=== PATIENT | male | born 1960 | race Caucasian/White ===

== ENCOUNTER 2016-08-21 10:31 | Emergency (ER) | payer OTHER ==
--- NOTE | 2016-08-21 11:32 | ED ---
Complex/Multi-Sys Presentation - HPI Summary HPI Summary: Recovering heroine addict here w/ blood in urine this morning. Denies frequency , dysuria, flank pain. Took a clonazepam last night as he couldn't sleep. Has taken this in the past w/o difficulty. When asked if he has nightsweats, he states " I don't sleep". Last used heroine 1 month ago. Denies withdrawal symptoms today. When asked if he's taking anything for cravings, he reports Chest sx x > 1 month - "doesn't feel right, can't breath well, discomfort" - can 't describe beyond this. Associated sx of chills - denies fever, vomiting, diarrhea. States he reported his chest sx to medical staff while he was in rehab for heroine - had XR's taken at [facility] [place] in [facility]. When asked about what he was supposed to do for f/u, he says nothing. Denies ECG. Unintentional weight loss of 68lbs over past 3-4 months Decreased appetite and nausea - no vomiting, no ab swelling Blood from anus the other day - lasted about 1 hour - none since - thinks it was his hemorrhoids as he's had this in the past. Non-painful. Also reports easy bruising on Rt arm. Labs done a few weeks ago and was told he has "liver issues" - no follow-up per pt - History Of Current Complaint Hx Obtained From: Patient <BrannonHortencia - Last Filed: 08/21/16 16:55> <Austin Talavera - Last Filed: 08/23/16 22:10> - History Of Current Complaint Chief Complaint: EDUrogenitalProblems Time Seen by Provider: 08/21/16 10:47 - Allergies/Home Medications Allergies/Adverse Reactions: Allergies Allergy/AdvReac Type Severity Reaction Status Date / Time Ibuprofen Allergy Intermediate Rash Verified 08/21/16 10:35 Tramadol Allergy Intermediate Rash Verified 08/21/16 10:35 Iodinated Diagnostic Agents AdvReac Vomiting Verified 08/23/16 15:47 CT Contrast AdvReac Intermediate Vomiting Uncoded 08/23/16 15:47 PMH/Surg Hx/FS Hx/Imm Hx Previously Healthy: Yes Endocrine/Hematology History: Reports: Hx Unexplained Bleeding - rectally Denies: Hx Anticoagulant Therapy, Hx Diabetes, Hx Thyroid Disease Cardiovascular History: Reports: Hx Hypertension - NO MEDS, Other Cardiovascular Problems/Disorders - HYPERTENSION Denies: Hx Congestive Heart Failure, Hx Pacemaker/ICD Respiratory History: Reports: Hx Asthma, Other Respiratory Problems/Disorders - R PNEUMONTHORAX PER PT Comment Only: Hx Chronic Obstructive Pulmonary Disease (COPD) - ? COPD GI History: Reports: Hx Hiatal Hernia - HX OF- HAD SURGERY, Other GI Disorders - right pneumothorax 2011 Denies: Hx Ulcer History: Denies: Hx Dialysis, Hx Renal Disease Musculoskeletal History: Reports: Other Musculoskeletal History - multiple rib fx from tombstone falling on pt Sensory History: Denies: Hx Contacts or Glasses, Hx Hearing Aid Opthamlomology History: Denies: Hx Contacts or Glasses Neurological History: Reports: Other Neuro Impairments/Disorders - depression Denies: Hx Dementia, Hx Seizures Psychiatric History: Reports: Hx Depression Denies: Hx Panic Disorder, Hx Substance Abuse - Surgical History Surgery Procedure, Year, and Place: hiatal hernia repair 2007, [facility], Hx Anesthesia Reactions: No - Immunization History Date of Tetanus Vaccine: unknown Infectious Disease History: No Infectious Disease History: Denies: Hx Hepatitis, Hx Human Immunodeficiency Virus (HIV), 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, Traveled Outside the [place] in Last 30 Days - Family History Known Family History: Positive: Unknown - Social History Alcohol Use: None Hx Substance Use: No Substance Use Type: Reports: Other Substance Use Comment - Amount & Last Used: Crack Hx Tobacco Use: No Smoking Status (MU): Never Smoked Tobacco <Hortencia South - Last Filed: 08/21/16 16:55> Review of Systems All Other Systems Reviewed And Are Negative: Yes <Hortencia South - Last Filed: 08/21/16 16:55> Physical Exam Vital Signs On Initial Exam: Initial Vitals Temp Pulse Resp BP Pulse Ox 97.7 F 85 16 121/82 100 08/21/16 10:35 08/21/16 10:35 08/21/16 10:35 08/21/16 10:35 08/21/16 10:35 <Hortencia South - Last Filed: 08/21/16 16:55> Vital Signs On Initial Exam: Initial Vitals Temp Pulse Resp BP Pulse Ox 36.5 C 85 16 121/82 100 08/21/16 10:35 08/21/16 10:35 08/21/16 10:35 08/21/16 10:35 08/21/16 10:35 <Austin Talavera - Last Filed: 08/23/16 22:10> Diagnostics - Vital Signs Vital Signs Temp Pulse Resp BP Pulse Ox 08/21/16 10:35 97.7 F 85 16 121/82 100 - Laboratory Result Diagrams: 08/21/16 12:35 08/21/16 12:35 Lab Statement: Any lab studies that have been ordered have been reviewed, and results considered in the medical decision making process. <Hortencia South - Last Filed: 08/21/16 16:55> - Vital Signs Vital Signs Temp Pulse Resp BP Pulse Ox 08/21/16 15:38 37.6 C 68 18 145/90 08/21/16 10:35 36.5 C 85 16 121/82 100 - Laboratory Lab Results: Lab Results 08/21/16 08/21/16 08/21/16 Range/Units 11:20 12:35 12:35 WBC (3.5-10.8) 10^3/ul RBC (4.0-5.4) 10^6/ul Hgb (14.0-18.0) g/dl Hct (42-52) % MCV (80-94) fL MCH (27-31) pg MCHC (31-36) g/dl RDW (10.5-15) % Plt Count (150-450) 10^3/ul MPV (7.4-10.4) um3 Neut % (Auto) (38-83) % Lymph % (Auto) (25-47) % [place] % (Auto) (1-9) % Eos % (Auto) (0-6) % Baso % (Auto) (0-2) % Absolute Neuts (auto) (1.5-7.7) 10^3/ul Absolute Lymphs (auto) (1.0-4.8) 10^3/ul Absolute Monos (auto) (0-0.8) 10^3/ul Absolute Eos (auto) (0-0.6) 10^3/ul Absolute Basos (auto) (0-0.2) 10^3/ul Absolute Nucleated RBC 10^3/ul Nucleated RBC % INR (Anticoag Therapy) (0.89-1.11) APTT (26.0-36.3) seconds Sodium (133-145) mmol/L Potassium (3.5-5.0) mmol/L Chloride (101-111) mmol/L Carbon Dioxide (22-32) mmol/L Anion Gap (2-11) mmol/L BUN (6-24) mg/dL Creatinine (0.67-1.17) mg/dL Est GFR ( Amer) (>60) Est GFR (Non-Af Amer) (>60) BUN/Creatinine Ratio (8-20) Glucose (70-100) mg/dL Lactic Acid (0.5-2.0) mmol/L Calcium (8.6-10.3) mg/dL Total Bilirubin (0.2-1.0) mg/dL AST (13-39) U/L ALT (7-52) U/L Alkaline Phosphatase (34-104) U/L Ammonia 42 (16-53) mol/L C-Reactive Protein (< 5.00) mg/L Total Protein (6.4-8.9) g/dL Albumin (3.2-5.2) g/dL Globulin (2-4) g/dL Albumin/Globulin Ratio (1-3) Urine Color Red A Urine Appearance Cloudy Urine pH 5.0 (5-9) Ur Specific [place] 1.025 (1.010-1.030) Urine Protein 2+(100 mg/dl) H (Negative) Urine Ketones Negative (Negative) Urine Blood 3 (Negative) Urine Nitrate Negative (Negative) Urine Bilirubin Negative (Negative) Urine Urobilinogen Negative (Negative) Ur Leukocyte Esterase Negative (Negative) Urine RBC (Auto) 3+(>10/hpf) H (Absent) Urine Glucose Negative (Negative) Urine Ascorbic Acid * H (Negative) Hepatitis A IgM Ab Nonreactive (Nonreactive) Hep Bs Antigen Nonreactive (Nonreactive) Hep B Core IgM Ab Nonreactive (Nonreactive) Hepatitis C Antibody High reactive H (Nonreactive) HIV 1&2 Antibody Nonreactive (Nonreactive) Blood Type Antibody Screen 08/21/16 08/21/16 08/21/16 Range/Units 12:35 12:35 12:35 WBC (3.5-10.8) 10^3/ul RBC (4.0-5.4) 10^6/ul Hgb (14.0-18.0) g/dl Hct (42-52) % MCV (80-94) fL MCH (27-31) pg MCHC (31-36) g/dl RDW (10.5-15) % Plt Count (150-450) 10^3/ul MPV (7.4-10.4) um3 Neut % (Auto) (38-83) % Lymph % (Auto) (25-47) % [place] % (Auto) (1-9) % Eos % (Auto) (0-6) % Baso % (Auto) (0-2) % Absolute Neuts (auto) (1.5-7.7) 10^3/ul Absolute Lymphs (auto) (1.0-4.8) 10^3/ul Absolute Monos (auto) (0-0.8) 10^3/ul Absolute Eos (auto) (0-0.6) 10^3/ul Absolute Basos (auto) (0-0.2) 10^3/ul Absolute Nucleated RBC 10^3/ul Nucleated RBC % INR (Anticoag Therapy) 1.05 (0.89-1.11) APTT 30.5 (26.0-36.3) seconds Sodium 141 (133-145) mmol/L Potassium 3.5 (3.5-5.0) mmol/L Chloride 107 (101-111) mmol/L Carbon Dioxide 29 (22-32) mmol/L Anion Gap 5 (2-11) mmol/L BUN 15 (6-24) mg/dL Creatinine 0.94 (0.67-1.17) mg/dL Est GFR ( Amer) 107.6 (>60) Est GFR (Non-Af Amer) 83.6 (>60) BUN/Creatinine Ratio 16.0 (8-20) Glucose 94 (70-100) mg/dL Lactic Acid 0.8 (0.5-2.0) mmol/L Calcium 9.0 (8.6-10.3) mg/dL Total Bilirubin 0.60 (0.2-1.0) mg/dL AST 44 H (13-39) U/L ALT 73 H (7-52) U/L Alkaline Phosphatase 64 (34-104) U/L Ammonia (16-53) mol/L C-Reactive Protein 3.09 (< 5.00) mg/L Total Protein 6.8 (6.4-8.9) g/dL Albumin 3.6 (3.2-5.2) g/dL Globulin 3.2 (2-4) g/dL Albumin/Globulin Ratio 1.1 (1-3) Urine Color Urine Appearance Urine pH (5-9) Ur Specific [place] (1.010-1.030) Urine Protein (Negative) Urine Ketones (Negative) Urine Blood (Negative) Urine Nitrate (Negative) Urine Bilirubin (Negative) Urine Urobilinogen (Negative) Ur Leukocyte Esterase (Negative) Urine RBC (Auto) (Absent) Urine Glucose (Negative) Urine Ascorbic Acid (Negative) Hepatitis A IgM Ab (Nonreactive) Hep Bs Antigen (Nonreactive) Hep B Core IgM Ab (Nonreactive) Hepatitis C Antibody (Nonreactive) HIV 1&2 Antibody (Nonreactive) Blood Type Antibody Screen 08/21/16 08/21/16 Range/Units 12:35 12:35 WBC 6.1 (3.5-10.8) 10^3/ul RBC 5.07 (4.0-5.4) 10^6/ul Hgb 14.7 (14.0-18.0) g/dl Hct 45 (42-52) % MCV 88 (80-94) fL MCH 29 (27-31) pg MCHC 33 (31-36) g/dl RDW 14 (10.5-15) % Plt Count 173 (150-450) 10^3/ul MPV 8 (7.4-10.4) um3 Neut % (Auto) 75.0 (38-83) % Lymph % (Auto) 16.4 L (25-47) % [place] % (Auto) 6.5 (1-9) % Eos % (Auto) 1.3 (0-6) % Baso % (Auto) 0.8 (0-2) % Absolute Neuts (auto) 4.6 (1.5-7.7) 10^3/ul Absolute Lymphs (auto) 1.0 (1.0-4.8) 10^3/ul Absolute Monos (auto) 0.4 (0-0.8) 10^3/ul Absolute Eos (auto) 0.1 (0-0.6) 10^3/ul Absolute Basos (auto) 0 (0-0.2) 10^3/ul Absolute Nucleated RBC 0.01 10^3/ul Nucleated RBC % 0.1 INR (Anticoag Therapy) (0.89-1.11) APTT (26.0-36.3) seconds Sodium (133-145) mmol/L Potassium (3.5-5.0) mmol/L Chloride (101-111) mmol/L Carbon Dioxide (22-32) mmol/L Anion Gap (2-11) mmol/L BUN (6-24) mg/dL Creatinine (0.67-1.17) mg/dL Est GFR ( Amer) (>60) Est GFR (Non-Af Amer) (>60) BUN/Creatinine Ratio (8-20) Glucose (70-100) mg/dL Lactic Acid (0.5-2.0) mmol/L Calcium (8.6-10.3) mg/dL Total Bilirubin (0.2-1.0) mg/dL AST (13-39) U/L ALT (7-52) U/L Alkaline Phosphatase (34-104) U/L Ammonia (16-53) mol/L C-Reactive Protein (< 5.00) mg/L Total Protein (6.4-8.9) g/dL Albumin (3.2-5.2) g/dL Globulin (2-4) g/dL Albumin/Globulin Ratio (1-3) Urine Color Urine Appearance Urine pH (5-9) Ur Specific [place] (1.010-1.030) Urine Protein (Negative) Urine Ketones (Negative) Urine Blood (Negative) Urine Nitrate (Negative) Urine Bilirubin (Negative) Urine Urobilinogen (Negative) Ur Leukocyte Esterase (Negative) Urine RBC (Auto) (Absent) Urine Glucose (Negative) Urine Ascorbic Acid (Negative) Hepatitis A IgM Ab (Nonreactive) Hep Bs Antigen (Nonreactive) Hep B Core IgM Ab (Nonreactive) Hepatitis C Antibody (Nonreactive) HIV 1&2 Antibody (Nonreactive) Blood Type O Positive Antibody Screen Negative Result Diagrams: 08/21/16 12:35 08/21/16 12:35 Lab Statement: Any lab studies that have been ordered have been reviewed, and results considered in the medical decision making process. <Austin Talavera - Last Filed: 08/23/16 22:10> Complex Multi-Symp Course/Dx <Hortencia South - Last Filed: 08/21/16 16:55> <Austin Talavera - Last Filed: 08/23/16 22:10> - Diagnoses Provider Diagnoses: Hematuria Discharge <Hortencia South - Last Filed: 08/21/16 16:55> <Austin Talavera - Last Filed: 08/23/16 22:10> - Discharge Plan Condition: Stable Disposition: HOME Patient Education Materials: Hepatitis C (ED), Hematuria (ED) Referrals: Lissette RIVERS,Tyson Garza [Medical Doctor] - Yony Barry NP [Nurse Practitioner] - Tl Ziegler MD [Medical Doctor] - Additional Instructions: Your urine is positive for blood. This needs to have further assessment with a urologist (Dr. Ziegler). Please call his office today to schedule an appointment for early next week. Contact information provided below. This may indicate a more serious condition and assessment should not be delayed. Please also follow-up with your PCP next week. You have some lab tests that will be ready in a few days and can be reviewed with your PCP. It is important that you review results, especially with your history of unintentional dramatic weight loss. Call today to schedule an appointment. Contact information included below. You were also found to have Hepatitis C. This needs to be addressed with an infectious disease doctor. *If you feel worse prior to these follow up, return to ED
[2016-08-21 12:03] LABS: Urine Bilirubin Negative (Negative); Urine Glucose Negative (Negative); Urine Nitrite Negative (Negative)
--- NOTE | 2016-08-21 12:15 | RAD ---
INDICATION: Shortness of breath. COMPARISON: Comparison is made with a prior study from October 31, 2015. TECHNIQUE: Dual-energy PA and lateral views of the chest were obtained. FINDINGS: The heart is within normal limits in size. Mediastinal and hilar contours appear within normal limits. The lungs are slightly hyperinflated and clear. No pleural effusion is seen. IMPRESSION: NO EVIDENCE FOR ACTIVE CARDIOPULMONARY DISEASE.
[2016-08-21 12:49] LABS: Hematocrit 45 % (42-52); Hemoglobin 14.7 g/dl (14.0-18.0); Mean Corpuscular HGB Conc 33 g/dl (31-36); Mean Corpuscular Hemoglobin 29 pg (27-31); Mean Corpuscular Volume 88 fL (80-94); Mean Platelet Volume 8 um3 (7.4-10.4); Red Blood Count 5.07 10^6/ul (4.0-5.4); Red Cell Distribution Width 14 % (10.5-15); White Blood Count 6.1 10^3/ul (3.5-10.8)
[2016-08-21 13:15] LABS: Albumin 3.6 g/dL (3.2-5.2); C Reactive Protein 3.09 mg/L (< 5.00); EGFR African American 107.6 (>60); EGFR Non-African American 83.6 (>60); Globulin 3.2 g/dL (2-4); Potassium 3.5 mmol/L (3.5-5.0); Total Bilirubin 0.6 mg/dL (0.2-1.0); Total Protein 6.8 g/dL (6.4-8.9)
[2016-08-21 15:06] LABS: Call Hep C TO BE CALLED
[2016-08-21 15:40] VITALS: BP 145/90
== END 2016-08-21 15:38 | disposition home or self-care (01) ==
LOC: ED 10:31
DX: R31.9 Hematuria, unspecified (principal); R06.02 Shortness of breath
CPT/HCPCS: 36415; 71020; 80053; 80074; 81003; 81015; 82140; 83605; 85025; 85610; 85730; 86140; 86703; 86850; 86900; 86901; 93005; 99282

== ENCOUNTER 2016-08-23 07:50 | Inpatient (IN) | payer OTHER ==
[2016-08-23] MEDS ORDERED: Ondansetron INJ* 2 MG/ML VIAL IV ONE ×2 (08:28→13:31)
[2016-08-23] MEDS ORDERED: Ondansetron INJ* 2 MG/ML VIAL ONE (08:29)
[2016-08-23] MEDS ORDERED: HYDROmorphone INJ* 1 MG/ML CARPUJECT SYRINGE IV ONE ×3 (08:33→15:36)
[2016-08-23] MEDS ORDERED: Ketorolac INJ* 30 MG/ML 1 ML VIAL IV ONE (08:33)
[2016-08-23] MEDS: NS 0.9% 1000 ML* 2,000 ML IV ONE ×2 (08:43→09:17)
--- NOTE | 2016-08-23 09:06 | RAD ---
INDICATION: Abdominal pain COMPARISON: Most recent comparison chest x-rays dated August 21, 2016 TECHNIQUE: Single AP portable view of the chest was obtained. FINDINGS: Image quality is compromised due to the relative inferiority of a portable chest x-ray. The heart and mediastinum exhibit normal size and contour. The lungs are grossly clear. There is no evidence of a large pleural effusion. Visualized bones are normal for the patient's age. IMPRESSION: No radiographic evidence for acute cardiopulmonary abnormality on this portable chest x-ray.
[2016-08-23 10:42] LABS: Hematocrit 42 % (42-52); Hemoglobin 13.7 g/dl (14.0-18.0); Mean Corpuscular HGB Conc 33 g/dl (31-36); Mean Corpuscular Hemoglobin 29 pg (27-31); Mean Corpuscular Volume 89 fL (80-94); Mean Platelet Volume 8 um3 (7.4-10.4); Red Blood Count 4.68 10^6/ul (4.0-5.4); Red Cell Distribution Width 14 % (10.5-15)
[2016-08-23 10:57] LABS: BUN/Creatinine Ratio 16.3 (8-20); C Reactive Protein 27.18 mg/L (< 5.00); EGFR African American 110.3 (>60); EGFR Non-African American 85.7 (>60); Globulin 2.7 g/dL (2-4); Potassium 3.2 mmol/L (3.5-5.0); Total Bilirubin 0.5 mg/dL (0.2-1.0); Total Protein 5.7 g/dL (6.4-8.9)
--- NOTE | 2016-08-23 10:58 | RAD ---
CLINICAL HISTORY: Left flank pain COMPARISON: Most recent comparison CT is dated September 02, 2015 TECHNIQUE: Noncontrast CT examination of the abdomen and pelvis from the lung bases through the initial tuberosities. FINDINGS: VISUALIZED LUNG BASES: The visualized lung bases are grossly clear. There is no pleural effusion. ABDOMEN AND PELVIS: Evaluation of the solid organs and vasculature is limited without intravenous contrast. The liver, spleen, pancreas and adrenal glands are grossly normal in appearance. The gallbladder is normal. The right kidney is normal in appearance without focal mass, calcification or signs of hydronephrosis. At the proximal left ureter there is a 6 mm calcification with ipsilateral moderate hydronephrosis and a mild degree of perinephric stranding. No definite calcifications are seen more distally or in the lumen of the urinary bladder. The small and large bowel are not distended.The patient's normal appendix is identified in the right lower quadrant with air in the lumen (axial image 99). There is no gross retroperitoneal or mesenteric lymphadenopathy. The pelvic viscera is normal in appearance. The mildly calcified abdominal aorta and iliac arteries are normal in course and diameter. Degenerative changes include multilevel loss of intervertebral disc height involving the lower thoracic and lumbar spine.There are no sinister bone lesions. IMPRESSION: 1. In the proximal left ureter there is a 6 mm calcification with ipsilateral hydronephrosis and mild perinephric stranding. 2. There are additional chronic and degenerative findings described in the body the report unlikely to be directly related to the patient's current presentation.
[2016-08-23] MEDS ORDERED: NS 0.9% 1000 ML* 1,000 ML IV ONE ×2 (11:29→14:52)
[2016-08-23 13:08] LABS: Urine Bacteria Absent (Absent); Urine Bilirubin Negative (Negative); Urine Glucose Negative (Negative); Urine Nitrite Negative (Negative)
--- NOTE | 2016-08-23 15:46 | ED ---
gabo Lilly Timothy, scribed for Eb Centeno MD on 08/23/16 at 0814 . Abdominal Pain/Male - HPI Summary HPI Summary: Sher Centeno is a 56 yo male presenting to [facility] with 10/10 constant LLQ abd pain beginning 0500 today, waking him up. He has vomited twice, and denies diarrhea. He denies any Hx of similar Sx. He denies any pain in his back. He states there are no aggravating or alleviating factors. His Hx includes obesity, collapsed lung 2013, polyp removal, asthma. - History of Current Complaint Chief Complaint: ED Stated Complaint: ABD PAIN Time Seen by Provider: 08/23/16 08:01 Hx Obtained From: Patient Onset/Duration: Sudden Onset, Lasting Hours, Still Present, Worse Since - now Timing: Constant, Lasting Hours Severity Initially: Moderate Severity Currently: Moderate Pain Intensity: 10 Pain Scale Used: 0-10 Numeric Location: Discrete At: LLQ Alleviating Factor(s): Nothing Associated Signs And Symptoms: Positive: Nausea, Vomiting - Allergies/Home Medications Allergies/Adverse Reactions: Allergies Allergy/AdvReac Type Severity Reaction Status Date / Time Ibuprofen Allergy Intermediate Rash Verified 08/21/16 10:35 Tramadol Allergy Intermediate Rash Verified 08/21/16 10:35 CT Contrast Allergy Intermediate Vomiting Uncoded 08/21/16 10:35 PMH/Surg Hx/FS Hx/Imm Hx Endocrine/Hematology History: Reports: Hx Unexplained Bleeding - rectally Denies: Hx Anticoagulant Therapy, Hx Diabetes, Hx Thyroid Disease Cardiovascular History: Reports: Hx Hypertension - NO MEDS, Other Cardiovascular Problems/Disorders - HYPERTENSION Denies: Hx Congestive Heart Failure, Hx Pacemaker/ICD Respiratory History: Reports: Hx Asthma, Other Respiratory Problems/Disorders - R PNEUMONTHORAX PER PT Comment Only: Hx Chronic Obstructive Pulmonary Disease (COPD) - ? COPD GI History: Reports: Hx Hiatal Hernia - HX OF- HAD SURGERY, Other GI Disorders - right pneumothorax 2011 Denies: Hx Ulcer History: Denies: Hx Dialysis, Hx Renal Disease Musculoskeletal History: Reports: Other Musculoskeletal History - multiple rib fx from tombstone falling on pt Sensory History: Denies: Hx Contacts or Glasses, Hx Hearing Aid Opthamlomology History: Denies: Hx Contacts or Glasses Neurological History: Reports: Other Neuro Impairments/Disorders - depression Denies: Hx Dementia, Hx Seizures Psychiatric History: Reports: Hx Depression Denies: Hx Panic Disorder, Hx Substance Abuse - Surgical History Surgery Procedure, Year, and Place: hiatal hernia repair 2007, [facility], Hx Anesthesia Reactions: No - Immunization History Date of Tetanus Vaccine: unknown Infectious Disease History: Denies: Hx Hepatitis, Hx Human Immunodeficiency Virus (HIV), 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 Negative: Diarrhea Genitourinary: Negative Musculoskeletal: Negative Skin: Negative Neurological: Negative Psychological: Normal All Other Systems Reviewed And Are Negative: Yes Physical Exam Triage Information Reviewed: Yes Vital Signs On Initial Exam: Initial Vitals Temp Pulse Resp BP Pulse Ox 98.5 F 58 18 180/150 98 08/23/16 07:58 08/23/16 07:58 08/23/16 07:58 08/23/16 07:58 08/23/16 07:58 Vital Signs Reviewed: Yes Appearance: Positive: Well-Appearing, Well-Nourished, Pain Distress - moderate Skin: Positive: Warm, Skin Color Reflects Adequate Perfusion, Dry Head/Face: Positive: Normal Head/Face Inspection Eyes: Positive: Normal ENT: Positive: Normal ENT inspection Neck: Positive: Supple, Nontender Respiratory/Lung Sounds: Positive: Clear to Auscultation, Breath Sounds Present Cardiovascular: Positive: RRR Abdomen Description: Positive: Soft. Negative: Nontender - mildl tender to left periumbilical region Bowel Sounds: Positive: Present Musculoskeletal: Positive: Normal Neurological: Positive: Normal Psychiatric: Positive: Normal Diagnostics - Vital Signs Vital Signs Temp Pulse Resp BP Pulse Ox 08/23/16 07:58 98.5 F 58 18 180/150 98 - Laboratory Lab Results: Lab Results 08/23/16 08/23/16 08/23/16 Range/Units 10:30 10:30 10:30 WBC 9.0 (3.5-10.8) 10^3/ul RBC 4.68 (4.0-5.4) 10^6/ul Hgb 13.7 L (14.0-18.0) g/dl Hct 42 (42-52) % MCV 89 (80-94) fL MCH 29 (27-31) pg MCHC 33 (31-36) g/dl RDW 14 (10.5-15) % Plt Count 130 L (150-450) 10^3/ul MPV 8 (7.4-10.4) um3 Neut % (Auto) 86.3 H (38-83) % Lymph % (Auto) 8.2 L (25-47) % [place] % (Auto) 4.3 (1-9) % Eos % (Auto) 0.8 (0-6) % Baso % (Auto) 0.4 (0-2) % Absolute Neuts (auto) 7.7 (1.5-7.7) 10^3/ul Absolute Lymphs (auto) 0.7 L (1.0-4.8) 10^3/ul Absolute Monos (auto) 0.4 (0-0.8) 10^3/ul Absolute Eos (auto) 0.1 (0-0.6) 10^3/ul Absolute Basos (auto) 0 (0-0.2) 10^3/ul Absolute Nucleated RBC 0 10^3/ul Nucleated RBC % 0 Sodium 139 (133-145) mmol/L Potassium 3.2 L (3.5-5.0) mmol/L Chloride 109 (101-111) mmol/L Carbon Dioxide 27 (22-32) mmol/L Anion Gap 3 (2-11) mmol/L BUN 15 (6-24) mg/dL Creatinine 0.92 (0.67-1.17) mg/dL Est GFR ( Amer) 110.3 (>60) Est GFR (Non-Af Amer) 85.7 (>60) BUN/Creatinine Ratio 16.3 (8-20) Glucose 114 H (70-100) mg/dL Lactic Acid 0.9 (0.5-2.0) mmol/L Calcium 8.0 L (8.6-10.3) mg/dL Total Bilirubin 0.50 (0.2-1.0) mg/dL AST 31 (13-39) U/L ALT 58 H (7-52) U/L Alkaline Phosphatase 54 (34-104) U/L C-Reactive Protein 27.18 H (< 5.00) mg/L Total Protein 5.7 L (6.4-8.9) g/dL Albumin 3.0 L (3.2-5.2) g/dL Globulin 2.7 (2-4) g/dL Albumin/Globulin Ratio 1.1 (1-3) Lipase 34 (11.0-82.0) U/L Urine Color Urine Appearance Urine pH (5-9) Ur Specific [place] (1.010-1.030) Urine Protein (Negative) Urine Ketones (Negative) Urine Blood (Negative) Urine Nitrate (Negative) Urine Bilirubin (Negative) Urine Urobilinogen (Negative) Ur Leukocyte Esterase (Negative) Urine WBC (Auto) (Absent) Urine RBC (Auto) (Absent) Ur Squamous Epith Cells (Absent) Urine Bacteria (Absent) Urine Glucose (Negative) 08/23/16 Range/Units 12:50 WBC (3.5-10.8) 10^3/ul RBC (4.0-5.4) 10^6/ul Hgb (14.0-18.0) g/dl Hct (42-52) % MCV (80-94) fL MCH (27-31) pg MCHC (31-36) g/dl RDW (10.5-15) % Plt Count (150-450) 10^3/ul MPV (7.4-10.4) um3 Neut % (Auto) (38-83) % Lymph % (Auto) (25-47) % [place] % (Auto) (1-9) % Eos % (Auto) (0-6) % Baso % (Auto) (0-2) % Absolute Neuts (auto) (1.5-7.7) 10^3/ul Absolute Lymphs (auto) (1.0-4.8) 10^3/ul Absolute Monos (auto) (0-0.8) 10^3/ul Absolute Eos (auto) (0-0.6) 10^3/ul Absolute Basos (auto) (0-0.2) 10^3/ul Absolute Nucleated RBC 10^3/ul Nucleated RBC % Sodium (133-145) mmol/L Potassium (3.5-5.0) mmol/L Chloride (101-111) mmol/L Carbon Dioxide (22-32) mmol/L Anion Gap (2-11) mmol/L BUN (6-24) mg/dL Creatinine (0.67-1.17) mg/dL Est GFR ( Amer) (>60) Est GFR (Non-Af Amer) (>60) BUN/Creatinine Ratio (8-20) Glucose (70-100) mg/dL Lactic Acid (0.5-2.0) mmol/L Calcium (8.6-10.3) mg/dL Total Bilirubin (0.2-1.0) mg/dL AST (13-39) U/L ALT (7-52) U/L Alkaline Phosphatase (34-104) U/L C-Reactive Protein (< 5.00) mg/L Total Protein (6.4-8.9) g/dL Albumin (3.2-5.2) g/dL Globulin (2-4) g/dL Albumin/Globulin Ratio (1-3) Lipase (11.0-82.0) U/L Urine Color [place]ina Urine Appearance Cloudy Urine pH 5.0 (5-9) Ur Specific [place] 1.021 (1.010-1.030) Urine Protein 1+(30 mg/dl) H (Negative) Urine Ketones Trace H (Negative) Urine Blood 3+ H (Negative) Urine Nitrate Negative (Negative) Urine Bilirubin Negative (Negative) Urine Urobilinogen Negative (Negative) Ur Leukocyte Esterase Negative (Negative) Urine WBC (Auto) 1+(6-10/hpf) H (Absent) Urine RBC (Auto) 3+(>10/hpf) H (Absent) Ur Squamous Epith Cells Present H (Absent) Urine Bacteria Absent (Absent) Urine Glucose Negative (Negative) Result Diagrams: 08/23/16 10:30 08/23/16 10:30 Lab Statement: Any lab studies that have been ordered have been reviewed, and results considered in the medical decision making process. - Radiology CXR Xray Interpretation: No Acute Changes - IMPRESSION: No radiographic evidence for acute cardiopulmonary abnormality on this portable chest x-ray. Radiology Interpretation Completed By: Radiologist - CT A/P CT Interpretation: Positive (See Comments) - IMPRESSION: 1. In the proximal left ureter there is a 6 mm calcification with ipsilateral hydronephrosis and mild perinephric stranding. 2. There are additional chronic and degenerative findings described in the body the report unlikely to be directly related to the patient's current presentation. CT Interpretation Completed By: Radiologist Re-Evaluation - Re-Evaluation First Eval Re-Evaluation Time: 12:04 Change: Unchanged Comment: Pt is having trouble providing a urine sample Second Eval Re-Evaluation Time: 15:26 Change: Worse Comment: Pain has increased. Abdominal Pain Fem Course/Dx - Course Assessment/Plan: Ruth Centeno is a 56 yo male presenting to [facility] with LLQ abdominal pain. He was in a lot of distress and was treated with medications and fluids. His ST showed a large proximal stone with hydronephrosis. We attempted to handle his pain here in the ED but it proved refractory. After review of his labwork and imaging studies, and consult with Dr. Acosta and Dr. Durán he will be admitted to [facility] [place] - Diagnoses Provider Diagnoses: Kidney stone on left side - Provider Notifications Discussed Care Of Patient With: 1451 - Dr. Pena (GI) - Discussed Pt condition, recommended pain control, and if it is uncontrollable, he ill need to be admitted. 1534 - Dr. Durán (hospitalist) - Discussed Pt condition and issues controlling his pain. Agrees to admit Pt. Discharge - Discharge Plan Condition: Stable Disposition: ADMITTED TO [facility] Referrals: Shelia Taylor MD [Primary Care Provider] - The documentation as recorded by the gabo angelo Timothy accurately reflects the service I personally performed and the decisions made by me, Eb Centeno MD.
[2016-08-23] MEDS ORDERED: NS 0.9% w/ 40 Meq KCL 1000 ML* 1,000 ML IV SCH (16:00)
[2016-08-23] MEDS ORDERED: Ondansetron INJ* 2 MG/ML VIAL IV PRN (16:12)
[2016-08-23] MEDS ORDERED: Acetaminophen TAB* 325 MG PO PRN (16:12)
[2016-08-23] MEDS ORDERED: Tamsulosin CAP* 0.4 MG PO ONE (16:16)
[2016-08-23] MEDS ORDERED: Morphine INJ* 4 MG/ML 1 ML CARPUJECT IV ONE (16:20)
--- NOTE | 2016-08-23 17:16 | PN ---
Hospitalist Progress Note HOSPITALIST ADDENDUM Case reviewed and d/w Alvin ABAD. Mr. Centeno is a 56yo M who presents to ED with renal colic. Labs and CT reviewed. Patient will be admitted for intractable pain. Agree with current management.
[2016-08-23] MEDS: HYDROmorphone INJ* 1 MG/ML CARPUJECT SYRINGE IV SLOW PU PRN (19:30)
--- NOTE | 2016-08-23 20:33 | HP ---
ADMISSION HISTORY AND PHYSICAL: DATE OF ADMISSION: 08/23/16 PRIMARY CARE PROVIDER: Dr. Shelia Spangler. ADMITTING PROVIDER: POLLO Hunter SUPERVISING PHYSICIAN: Dr. Radha Love.* (DICTATED BY POLLO HUNTER) CONSULTING UROLOGIST: Dr. Acosta. CHIEF COMPLAINT: Left-sided abdominal pain. HISTORY OF PRESENT ILLNESS: This is a 56-year-old gentleman with only medical history being mild intermittent asthma who presented to the emergency department with sudden onset left flank pain. The patient states that he awoke from sleep this morning at approximately 4:30 a.m. with severe abdominal pain. He noted some mild discomfort and hematuria a couple of days ago, but states that that has since resolved. He denied any recent fevers or other acute illness. He has been extremely nauseated today and vomiting frequently. Prior to today, he was not experiencing any nausea or vomiting. The patient denies any chest pain or difficulty breathing. He has been afebrile. PAST MEDICAL HISTORY: Mild intermittent asthma. PAST SURGICAL HISTORY: 1. Hernia repair. 2. Nasal surgery. HOME MEDICATIONS: Albuterol 2 puffs q.4 hours as needed for shortness of breath. SOCIAL HISTORY: The patient smokes a half pack of cigarettes daily, approximately [id number]-lcay smoking history. Denies any regular alcohol consumption. The patient is and unemployed. REVIEW OF SYSTEMS: As noted above in HPI. PHYSICAL EXAMINATION GENERAL: This is an uncomfortable and mildly ill-appearing 56-year-old gentleman, lying in a hospital stretcher. VITAL SIGNS: Temperature 98.5 degrees Fahrenheit, pulse 58 beats per minute, respiratory rate 18, oxygen saturation 98% on room air, and blood pressure 180/ 150 mmHg. Most recent blood pressure improved to 128/58 mmHg after administration of pain medication. HEENT: Head is normocephalic, atraumatic. Mucous membranes are mildly dry. RESPIRATORY: Lungs are clear to auscultation without wheezes, crackles, or rhonchi. CARDIOVASCULAR: Heart has a regular rate and rhythm without murmurs, rubs, or gallops. ABDOMEN: Soft with bowel sounds present. He is exquisitely tender to palpation over the left flank and left abdomen. EXTREMITIES: No lower extremity edema appreciated. PSYCH: The patient is alert and appropriately oriented. LABORATORY EVALUATION: CBC shows a white blood cell count of 9000, hemoglobin 13.7 g/dL, and a platelet count of 130,000. Comprehensive metabolic panel shows a sodium of 139 mmol/L, potassium 3.2, serum bicarb 27, BUN of 15, creatinine 0.92, and an estimated GFR of 110. Random glucose 114 mg/dL. Transaminases and total bilirubin within normal limits. CRP only mildly elevated at 27. Lipase normal at 34. Urinalysis is positive for 1+ protein, trace ketones, 3+ blood, 1+ white blood cells, and 3+ red blood cells. IMAGING: CT of the abdomen and pelvis shows a left proximal ureteral stone with moderate hydronephrosis and mild perinephric stranding, stone measuring approximately 6 mm in diameter. Chest x-ray shows no acute process. ASSESSMENT AND PLAN: This is a 56-year-old male with mild intermittent asthma who presents with severe sudden onset of left flank pain with noted proximal obstructing stone. 1. Ureteral stone with moderate hydronephrosis - stone measures [address] Acosta was contacted by emergency department provider who suggested fluids and analgesics in the emergency department and outpatient followup. About after 8 hours in the emergency department, he continues to be significantly symptomatic. The patient will subsequently be admitted for pain management and Urology consultation in the morning. We will continue with fluids, antiemetics, and analgesic medications. I will give him one time dose of Flomax. Urologist, Dr. Acosta, is aware of the patient. No associated infection apparent. We will make him n.p.o. after midnight for likely intervention tomorrow morning unless he is able to pass the stone on his own this evening, which seems to be unlikely given its location. 2. Mild intermittent asthma without associated exacerbation. 3. Hypokalemia: The patient is mildly hypokalemic likely due to GI loss. We will replace with IV fluids. 4. Code status: The patient is full code. 5. Healthcare proxy is unknown. 6. DVT prophylaxis - the patient is at low to moderate risk for deep venous thrombosis. We will avoid chemical prophylaxis as there is likely planned intervention for tomorrow, but we will order SCDs to decrease deep venous thrombosis risk. DISPOSITION: The patient is being admitted to observation status with pending urology consult for tomorrow morning. Anticipate likely discharge tomorrow following either lithotripsy or retrograde pyelogram with stent placement. POLLO HUNTER CC: Dr. Shelia Spangler * [id number]/[facility] #: [id number] [facility]
[2016-08-23] MEDS: Morphine INJ* 4 MG/ML 1 ML CARPUJECT IV PRN (23:06)
[2016-08-24] MEDS: HYDROmorphone INJ* 1 MG/ML CARPUJECT SYRINGE IV SLOW PU PRN ×2 (04:07→08:35)
[2016-08-24 06:54] LABS: Hematocrit 37 % (42-52); Hemoglobin 12.5 g/dl (14.0-18.0); Mean Corpuscular HGB Conc 34 g/dl (31-36); Mean Corpuscular Hemoglobin 30 pg (27-31); Mean Corpuscular Volume 88 fL (80-94); Mean Platelet Volume 8 um3 (7.4-10.4); Red Blood Count 4.19 10^6/ul (4.0-5.4); Red Cell Distribution Width 15 % (10.5-15); White Blood Count 7.7 10^3/ul (3.5-10.8)
[2016-08-24 07:12] LABS: BUN/Creatinine Ratio 12.9 (8-20); Calcium 7.9 mg/dL (8.6-10.3); EGFR African American 108.9 (>60); EGFR Non-African American 84.7 (>60); Potassium 3.9 mmol/L (3.5-5.0)
[2016-08-24] MEDS: Morphine INJ* 4 MG/ML 1 ML CARPUJECT IV PRN ×4 (07:45→20:55)
--- NOTE | 2016-08-24 08:36 | RAD ---
HISTORY: Renal colic COMPARISONS: CT dated August 23, 2016 VIEWS: Frontal views of the abdomen. FINDINGS: BOWEL: There is a nonobstructive bowel gas pattern. There is a large amount of stool within the colon. CALCULI: There is a 0.3 cm calculus opposite of L4 on the left corresponding to the calculus noted on previous CT. This is stable. BONES AND SOFT TISSUES: There are no osseous abnormalities. OTHER FINDINGS: The lung bases are clear. There is no subphrenic gas. IMPRESSION: STABLE LEFT NEPHROLITHIASIS
[2016-08-24] MEDS ORDERED: Influenza VAC *QUAD* 2016-17* 0.5 ML SYRINGE IM ONE (09:00)
[2016-08-24] MEDS ORDERED: Pneumococcal *Vac Polyvalent 0.5 ML VIAL IM ONE (09:00)
--- NOTE | 2016-08-24 12:00 | PN ---
Subjective Date of Service: 08/24/16 Interval History: . pt reports he has continued pain in LL abdomen, not so much in his back, a little better than admission but rates his pain 7/10. No fevers or chills. Mild nausea but no emesis. Does not feel well enough to go home due to pain and nausea. reports bloody urine. Discussed with pt results of positive Hepatitis C antibody, he reports no hx in the past. Denies hx of IV drug use and is not sure if he has had blood transfusions. Objective Active Medications: Acetaminophen (Tylenol Tab*) 650 mg PO Q4H PRN PRN Reason: FEVER/PAIN Hydromorphone HCl (Dilaudid Iv*) 1 mg IV SLOW PU Q4H PRN PRN Reason: SEVERE PAIN Last Admin: 08/24/16 08:35 Dose: 1 mg Potassium Chloride 20 meq/ (Lactated Ringer's) 1,010 mls @ 151.5 mls/hr IVPB Q6H SHANTAL Last Admin: 08/24/16 06:39 Dose: 151.5 mls/hr Morphine Sulfate (Morphine Inj (Syringe)*) 4 mg IV Q4H PRN PRN Reason: PAIN Last Admin: 08/24/16 11:52 Dose: 4 mg Ondansetron HCl (Zofran Inj*) 4 mg IV Q4H PRN PRN Reason: NAUSEA/VOMITING Vital Signs 08/23/16 08/23/16 08/23/16 16:30 16:33 16:35 Temperature Pulse Rate 94 Respiratory 20 Rate Blood Pressure 111/53 (mmHg) O2 Sat by Pulse 89 Oximetry 08/23/16 08/23/16 08/23/16 16:55 17:01 17:04 Temperature 98.5 F 97.7 F Pulse Rate 80 55 Respiratory 20 16 16 Rate Blood Pressure 111/53 131/66 (mmHg) O2 Sat by Pulse 96 Oximetry 08/23/16 08/23/16 08/23/16 17:16 19:30 20:00 Temperature Pulse Rate Respiratory 16 17 15 Rate Blood Pressure (mmHg) O2 Sat by Pulse Oximetry 08/23/16 08/23/16 08/23/16 20:30 22:19 23:06 Temperature 98.6 F Pulse Rate 72 Respiratory 15 18 16 Rate Blood Pressure 102/56 (mmHg) O2 Sat by Pulse 96 Oximetry 08/23/16 08/24/16 08/24/16 23:18 00:06 04:07 Temperature Pulse Rate 57 Respiratory 17 16 17 Rate Blood Pressure 112/53 (mmHg) O2 Sat by Pulse 97 Oximetry 08/24/16 08/24/16 08/24/16 04:32 05:07 07:45 Temperature 98.2 F Pulse Rate 46 Respiratory 16 15 12 Rate Blood Pressure 109/46 (mmHg) O2 Sat by Pulse 100 Oximetry 08/24/16 08/24/16 08/24/16 07:54 08:35 11:52 Temperature 98.3 F Pulse Rate 49 Respiratory 16 12 14 Rate Blood Pressure 100/48 (mmHg) O2 Sat by Pulse 97 Oximetry Oxygen Devices in Use Now: Nasal Cannula - 5L NC Appearance: 56 yo male A+O x3 laying in bed in NAD. appears comfortable Eyes: No Scleral Icterus, PERRLA Ears/Nose/Mouth/Throat: NL Teeth, Lips, Gums, Mucous Membranes Moist, - Neck: NL Appearance and Movements; NL JVP Respiratory: Symmetrical Chest Expansion and Respiratory Effort, Clear to Auscultation, - Cardiovascular: NL Sounds; No Murmurs; No JVD, RRR, No Edema Abdominal: - - NL sounds, soft, nondistended. LL quad tenderness to palpation, mild guarding Extremities: No Edema, No Clubbing, Cyanosis Skin: No Rash or Ulcers, No Nodules or Sclerosis Neurological: Alert and Oriented x 3, NL Sensation, NL Gait, NL Muscle Strength and Tone, - Lines/Tubes/Other Access: Clean, Dry and Intact Peripheral IV Result Diagrams: 08/24/16 06:25 08/24/16 06:25 Additional Lab and Data: Lab Results 08/23/16 08/23/16 08/23/16 Range/Units 10:30 10:30 10:30 WBC 9.0 (3.5-10.8) 10^3/ul RBC 4.68 (4.0-5.4) 10^6/ul Hgb 13.7 L (14.0-18.0) g/dl Hct 42 (42-52) % MCV 89 (80-94) fL MCH 29 (27-31) pg MCHC 33 (31-36) g/dl RDW 14 (10.5-15) % Plt Count 130 L (150-450) 10^3/ul MPV 8 (7.4-10.4) um3 Neut % (Auto) 86.3 H (38-83) % Lymph % (Auto) 8.2 L (25-47) % [place] % (Auto) 4.3 (1-9) % Eos % (Auto) 0.8 (0-6) % Baso % (Auto) 0.4 (0-2) % Absolute Neuts (auto) 7.7 (1.5-7.7) 10^3/ul Absolute Lymphs (auto) 0.7 L (1.0-4.8) 10^3/ul Absolute Monos (auto) 0.4 (0-0.8) 10^3/ul Absolute Eos (auto) 0.1 (0-0.6) 10^3/ul Absolute Basos (auto) 0 (0-0.2) 10^3/ul Absolute Nucleated RBC 0 10^3/ul Nucleated RBC % 0 Sodium 139 (133-145) mmol/L Potassium 3.2 L (3.5-5.0) mmol/L Chloride 109 (101-111) mmol/L Carbon Dioxide 27 (22-32) mmol/L Anion Gap 3 (2-11) mmol/L BUN 15 (6-24) mg/dL Creatinine 0.92 (0.67-1.17) mg/dL Est GFR ( Amer) 110.3 (>60) Est GFR (Non-Af Amer) 85.7 (>60) BUN/Creatinine Ratio 16.3 (8-20) Glucose 114 H (70-100) mg/dL Lactic Acid 0.9 (0.5-2.0) mmol/L Calcium 8.0 L (8.6-10.3) mg/dL Total Bilirubin 0.50 (0.2-1.0) mg/dL AST 31 (13-39) U/L ALT 58 H (7-52) U/L Alkaline Phosphatase 54 (34-104) U/L C-Reactive Protein 27.18 H (< 5.00) mg/L Total Protein 5.7 L (6.4-8.9) g/dL Albumin 3.0 L (3.2-5.2) g/dL Globulin 2.7 (2-4) g/dL Albumin/Globulin Ratio 1.1 (1-3) Lipase 34 (11.0-82.0) U/L Urine Color Urine Appearance Urine pH (5-9) Ur Specific [place] (1.010-1.030) Urine Protein (Negative) Urine Ketones (Negative) Urine Blood (Negative) Urine Nitrate (Negative) Urine Bilirubin (Negative) Urine Urobilinogen (Negative) Ur Leukocyte Esterase (Negative) Urine WBC (Auto) (Absent) Urine RBC (Auto) (Absent) Ur Squamous Epith Cells (Absent) Urine Bacteria (Absent) Urine Glucose (Negative) 08/23/16 Range/Units 12:50 WBC (3.5-10.8) 10^3/ul RBC (4.0-5.4) 10^6/ul Hgb (14.0-18.0) g/dl Hct (42-52) % MCV (80-94) fL MCH (27-31) pg MCHC (31-36) g/dl RDW (10.5-15) % Plt Count (150-450) 10^3/ul MPV (7.4-10.4) um3 Neut % (Auto) (38-83) % Lymph % (Auto) (25-47) % [place] % (Auto) (1-9) % Eos % (Auto) (0-6) % Baso % (Auto) (0-2) % Absolute Neuts (auto) (1.5-7.7) 10^3/ul Absolute Lymphs (auto) (1.0-4.8) 10^3/ul Absolute Monos (auto) (0-0.8) 10^3/ul Absolute Eos (auto) (0-0.6) 10^3/ul Absolute Basos (auto) (0-0.2) 10^3/ul Absolute Nucleated RBC 10^3/ul Nucleated RBC % Sodium (133-145) mmol/L Potassium (3.5-5.0) mmol/L Chloride (101-111) mmol/L Carbon Dioxide (22-32) mmol/L Anion Gap (2-11) mmol/L BUN (6-24) mg/dL Creatinine (0.67-1.17) mg/dL Est GFR ( Amer) (>60) Est GFR (Non-Af Amer) (>60) BUN/Creatinine Ratio (8-20) Glucose (70-100) mg/dL Lactic Acid (0.5-2.0) mmol/L Calcium (8.6-10.3) mg/dL Total Bilirubin (0.2-1.0) mg/dL AST (13-39) U/L ALT (7-52) U/L Alkaline Phosphatase (34-104) U/L C-Reactive Protein (< 5.00) mg/L Total Protein (6.4-8.9) g/dL Albumin (3.2-5.2) g/dL Globulin (2-4) g/dL Albumin/Globulin Ratio (1-3) Lipase (11.0-82.0) U/L Urine Color [place] Urine Appearance Cloudy Urine pH 5.0 (5-9) Ur Specific [place] 1.021 (1.010-1.030) Urine Protein 1+(30 mg/dl) H (Negative) Urine Ketones Trace H (Negative) Urine Blood 3+ H (Negative) Urine Nitrate Negative (Negative) Urine Bilirubin Negative (Negative) Urine Urobilinogen Negative (Negative) Ur Leukocyte Esterase Negative (Negative) Urine WBC (Auto) 1+(6-10/hpf) H (Absent) Urine RBC (Auto) 3+(>10/hpf) H (Absent) Ur Squamous Epith Cells Present H (Absent) Urine Bacteria Absent (Absent) Urine Glucose Negative (Negative) Assess/Plan/Problems-Billing Assessment: Mr. Centeno is a 56 yo male with a PMH of asthma who presented to the ED on 08/23/16 with c/o left-sided abdominal pain found to have left proximal ureteral stone 6mm with moderate hydronephrosis - Patient Problems (1) Abdominal pain Comment: - Found to have a left proximal ureteral stone 6mm with moderate hydronephrosis and starnding. Does not appears to be infected, he was given one dose of ceftriaxone in OR setting. KUB this am showing stable left nephrolithiasis. Pt was taken to the OR today by Dr. Acosta who was able to remove the stone nad placed a stent. Plan to f/u in office next week, appointment already scheduled. - continue IVFs, antiemetics, and pain management (2) Hepatitis C antibody positive in blood Comment: - was checked 08/21 during ED visit - positive Hep C antibody - Pt will need close f/u with PCP to check viral load - CT abdomen showing normal liver. - Hepatitis A, B, HIV nonrecative - Hep C precautions education (3) Asthma Comment: stable. Albuterol PRN (4) DVT prophylaxis Comment: SCDs (5) Full code status Status and Disposition: switch to inpatient. Plan for DC home tomorrow.
[2016-08-24] MEDS ORDERED: Albuterol 2.5 MG/3 ML NEB.SOL* (0.083%) INH PRN (12:10)
[2016-08-24] MEDS ORDERED: cefTRIAXone VIAL(*) 1,000 MG VIAL ONE (12:38)
[2016-08-24] MEDS ORDERED: Iohexol 180 (CONTRAST) 10 ML SDV IV ONE (12:41)
[2016-08-24] MEDS ORDERED: fentaNYL* 50 MCG/ML 2 ML VIAL (100 MCG VIAL) ONE ×2 (12:51→14:31)
[2016-08-24] MEDS ORDERED: DiMENhydriNATE IV* 50 MG/ML VIAL IV PUSH PRN (13:09)
[2016-08-24] MEDS ORDERED: oxyCODONE/Acetamin 5/325 MG* TAB PO PRN ×3 (13:09→16:28)
[2016-08-24] MEDS ORDERED: EPHEDrine (Pressors)* 50 MG/ML VIAL ONE (13:12)
--- NOTE | 2016-08-24 14:05 | RAD ---
INDICATION: Stent placement. COMPARISON: Comparison is made of a prior CT of the abdomen and pelvis from August 23, 2016. TECHNIQUE: 8 seconds of intermittent fluoroscopic guidance were provided and 5 spot films of the abdomen were centered on the left side. FINDINGS: There is partial opacification of the left renal collecting system. Subsequently there is placement of a double-J stent catheter on the left side which demonstrates normal course. IMPRESSION: INTRAOPERATIVE CONTROL FILMS. CPT II Codes: 6045F
[2016-08-24] MEDS: fentaNYL* 50 MCG/ML 2 ML VIAL (100 MCG VIAL) IV PRN ×2 (14:32→15:37)
--- NOTE | 2016-08-25 02:30 | OP ---
DATE OF OPERATION: 08/24/16 - ROOM #416 DATE OF : 64 SURGEON: Alex Acosta MD ANESTHESIOLOGIST: Dr. Darron Garcia. ANESTHESIA: General. PRE-OP DIAGNOSES: 1. Left renal colic. 2. Proximal left ureteral calculus (6 mm). POST-OP DIAGNOSES: 1. Left renal colic. 2. Proximal left ureteral calculus (6 mm). OPERATIVE PROCEDURE: 1. Cystoscopy. 2. Left ureteroscopy and laser lithotripsy of proximal left ureteral calculus ( 6 mm). 3. Left retrograde pyelography and placement of left ureteral stent (6-Thai) INDICATION FOR PROCEDURE: Mr. Centeno is a 56-year-old white male who presented to the emergency room yesterday with symptoms of left renal colic and was noted on a non-contrast CT of the abdomen and pelvis to have a 6 mm proximal left ureteral calculus. The patient was admitted for pain control and IV fluid. He had A KUB this morning, which showed the calculus at the level of the proximal Lt ureter. Because of the above history and findings and persistent pain, the above procedure was advised and accepted. PATHOLOGY: At cystoscopy, the penile and bulbar urethrae looked normal. 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 The prostatic urethra was moderately vascular. Examination of the bladder showed minimal bladder trabeculations. There were no suspicious bladder lesions seen. No calculi or diverticula were noted. At fluoroscopy, a radiopaque calculus was noted in the proximal left ureter. Upon left ureteroscopy, the calculus was noted to be impacted in the proximal left ureter. The calculus had the gross appearance of calcium oxalate stone. Left retrograde pyelography showed mild left hydronephrosis. Rectal exam at the end of the procedure showed slightly enlarged but non- suspicious prostate and no suspicious nodules were felt. DESCRIPTION OF PROCEDURE: After successful general anesthesia, the patient was placed in the lithotomy position and was prepped and draped in the usual manner. Cystoscopy was performed. The bladder was carefully inspected and the above findings were noted. A flexible tip guidewire was then introduced into the left orifice and positioned in the area of the renal pelvis. The cystoscope was then removed keeping the guidewire in place. A size 6.5-Thai tapered semirigid ureteroscope was then passed inside the bladder. A flexible-tip basket was then introduced through the port of the ureteroscope and its flexible tip was introduced inside the left ureter and used as a guide to introduce the ureteroscope with minimal trauma to the ureteral mucosa. The ureteroscope was then introduced all the way until the calculus was identified. The stent was then deployed beyond the stone and the stone was engaged within the basket to prevent its proximal migration. A size 550 micron laser fiber was then introduced through the other port of the ureteroscope. The stone was then broken into several fragments. The larger fragments were then extracted with the basket and sent for stone analysis. The ureteroscope was reintroduced inside the left ureter and the whole length of the ureter was inspected again showing no significant residual stone fragments and no ureteral injury. Retrograde pyelography was then performed. A size 6-Thai stent was then placed with the proximal end coiling in the renal pelvis and the distal end coiling inside the bladder. There was good drainage of contrast from the kidney and no extravasation. A 16-Thai Orr catheter was then placed. Rectal examination was then performed for prostate exam. The patient tolerated the procedure well and left the operating room in good condition. The plan is to see the patient in the office next week and the stent will be removed. CC: Shelia Spangler MD* [id number]/[facility] #: [id number] MTDD
[2016-08-25] MEDS: Morphine INJ* 4 MG/ML 1 ML CARPUJECT IV PRN ×2 (03:20→07:32)
[2016-08-25 06:03] LABS: Hematocrit 36 % (42-52); Hemoglobin 11.9 g/dl (14.0-18.0); Mean Corpuscular HGB Conc 33 g/dl (31-36); Mean Corpuscular Hemoglobin 29 pg (27-31); Mean Corpuscular Volume 88 fL (80-94); Mean Platelet Volume 8 um3 (7.4-10.4); Red Blood Count 4.08 10^6/ul (4.0-5.4); Red Cell Distribution Width 14 % (10.5-15); White Blood Count 5.4 10^3/ul (3.5-10.8)
[2016-08-25 06:22] LABS: BUN/Creatinine Ratio 12.9 (8-20); Calcium 7.8 mg/dL (8.6-10.3); EGFR African American 120.8 (>60); EGFR Non-African American 93.9 (>60); Potassium 3.7 mmol/L (3.5-5.0)
[2016-08-25 07:22] VITALS: BP 130/72
--- NOTE | 2016-08-25 09:47 | DCNOTE ---
Subjective Date of Service: 08/25/16 Interval History: patient continues to have left renal colic and pain when urinating - he appears comfortable. per nurse he is refusing PO percocet and asking for IV morphine but does not appear to be in acute pain distress and agrees he is ready to go home. Discussed discharge plan with patient and his follow up. He states understanding. Objective Active Medications: Acetaminophen (Tylenol Tab*) 650 mg PO Q4H PRN PRN Reason: FEVER/PAIN Albuterol (Ventolin 2.5 Mg/3 Ml Neb.Shandra*) 2.5 mg INH Q4H PRN PRN Reason: SOB/WHEEZING Ondansetron HCl (Zofran Inj*) 4 mg IV Q4H PRN PRN Reason: NAUSEA/VOMITING Last Admin: 08/24/16 23:21 Dose: 4 mg Oxycodone/Acetaminophen (Percocet 5/325 Tab*) 1 tab PO Q4H PRN PRN Reason: PAIN Oxycodone/Acetaminophen (Percocet 5/325 Tab*) 2 tab PO Q4H PRN PRN Reason: SEVERE PAIN Last Admin: 08/24/16 20:29 Dose: 2 tab Vital Signs 08/24/16 08/24/16 08/24/16 15:32 15:37 15:45 Temperature 97.7 F Pulse Rate 50 Respiratory 14 20 16 Rate Blood Pressure 131/68 (mmHg) O2 Sat by Pulse 100 Oximetry 08/24/16 08/24/16 08/24/16 16:18 16:45 17:02 Temperature 98.0 F 97.9 F Pulse Rate 55 66 Respiratory 18 14 Rate Blood Pressure 126/74 155/63 (mmHg) O2 Sat by Pulse 100 100 Oximetry 08/24/16 08/24/16 08/24/16 17:45 18:02 18:21 Temperature 97.8 F Pulse Rate 60 61 Respiratory 18 16 16 Rate Blood Pressure 153/63 (mmHg) O2 Sat by Pulse 100 98 Oximetry 08/24/16 08/24/16 08/24/16 20:00 20:18 20:29 Temperature 97.7 F Pulse Rate 52 Respiratory 16 18 20 Rate Blood Pressure 150/63 (mmHg) O2 Sat by Pulse 100 Oximetry 08/24/16 08/24/16 08/24/16 20:55 21:45 21:55 Temperature 97.9 F Pulse Rate 65 Respiratory 18 18 16 Rate Blood Pressure 150/63 (mmHg) O2 Sat by Pulse 100 Oximetry 08/24/16 08/24/16 08/25/16 22:29 23:38 00:00 Temperature 98.1 F Pulse Rate 54 Respiratory 16 16 Rate Blood Pressure 130/45 (mmHg) O2 Sat by Pulse 98 98 Oximetry 08/25/16 08/25/16 08/25/16 01:16 03:20 04:20 Temperature Pulse Rate 62 Respiratory 20 18 16 Rate Blood Pressure (mmHg) O2 Sat by Pulse 98 Oximetry 08/25/16 08/25/16 08/25/16 07:21 07:32 07:49 Temperature 97.8 F Pulse Rate 50 Respiratory 16 20 20 Rate Blood Pressure 130/72 (mmHg) O2 Sat by Pulse 100 95 Oximetry 08/25/16 08:32 Temperature Pulse Rate Respiratory 16 Rate Blood Pressure (mmHg) O2 Sat by Pulse Oximetry Oxygen Devices in Use Now: Nasal Cannula - 5L NC Appearance: 56 yo male laying comfortably in bed A+O x3 in NAD Eyes: No Scleral Icterus, PERRLA Ears/Nose/Mouth/Throat: NL Teeth, Lips, Gums, Mucous Membranes Moist Neck: NL Appearance and Movements; NL JVP Respiratory: Symmetrical Chest Expansion and Respiratory Effort, Clear to Auscultation Cardiovascular: NL Sounds; No Murmurs; No JVD, RRR, No Edema Abdominal: NL Sounds; No Tenderness; No Distention, No Hepatosplenomegaly, - - no guarding Extremities: No Edema, No Clubbing, Cyanosis Skin: No Rash or Ulcers, No Nodules or Sclerosis Neurological: Alert and Oriented x 3, NL Sensation, NL Gait, NL Muscle Strength and Tone Lines/Tubes/Other Access: Clean, Dry and Intact Peripheral IV Nutrition: Taking PO's Result Diagrams: 08/25/16 05:19 08/25/16 05:19 Additional Lab and Data: Lab Results 08/23/16 08/23/16 08/23/16 Range/Units 10:30 10:30 10:30 WBC 9.0 (3.5-10.8) 10^3/ul RBC 4.68 (4.0-5.4) 10^6/ul Hgb 13.7 L (14.0-18.0) g/dl Hct 42 (42-52) % MCV 89 (80-94) fL MCH 29 (27-31) pg MCHC 33 (31-36) g/dl RDW 14 (10.5-15) % Plt Count 130 L (150-450) 10^3/ul MPV 8 (7.4-10.4) um3 Neut % (Auto) 86.3 H (38-83) % Lymph % (Auto) 8.2 L (25-47) % Davidson % (Auto) 4.3 (1-9) % Eos % (Auto) 0.8 (0-6) % Baso % (Auto) 0.4 (0-2) % Absolute Neuts (auto) 7.7 (1.5-7.7) 10^3/ul Absolute Lymphs (auto) 0.7 L (1.0-4.8) 10^3/ul Absolute Monos (auto) 0.4 (0-0.8) 10^3/ul Absolute Eos (auto) 0.1 (0-0.6) 10^3/ul Absolute Basos (auto) 0 (0-0.2) 10^3/ul Absolute Nucleated RBC 0 10^3/ul Nucleated RBC % 0 Sodium 139 (133-145) mmol/L Potassium 3.2 L (3.5-5.0) mmol/L Chloride 109 (101-111) mmol/L Carbon Dioxide 27 (22-32) mmol/L Anion Gap 3 (2-11) mmol/L BUN 15 (6-24) mg/dL Creatinine 0.92 (0.67-1.17) mg/dL Est GFR ( Amer) 110.3 (>60) Est GFR (Non-Af Amer) 85.7 (>60) BUN/Creatinine Ratio 16.3 (8-20) Glucose 114 H (70-100) mg/dL Lactic Acid 0.9 (0.5-2.0) mmol/L Calcium 8.0 L (8.6-10.3) mg/dL Total Bilirubin 0.50 (0.2-1.0) mg/dL AST 31 (13-39) U/L ALT 58 H (7-52) U/L Alkaline Phosphatase 54 (34-104) U/L C-Reactive Protein 27.18 H (< 5.00) mg/L Total Protein 5.7 L (6.4-8.9) g/dL Albumin 3.0 L (3.2-5.2) g/dL Globulin 2.7 (2-4) g/dL Albumin/Globulin Ratio 1.1 (1-3) Lipase 34 (11.0-82.0) U/L Urine Color Urine Appearance Urine pH (5-9) Ur Specific [place] (1.010-1.030) Urine Protein (Negative) Urine Ketones (Negative) Urine Blood (Negative) Urine Nitrate (Negative) Urine Bilirubin (Negative) Urine Urobilinogen (Negative) Ur Leukocyte Esterase (Negative) Urine WBC (Auto) (Absent) Urine RBC (Auto) (Absent) Ur Squamous Epith Cells (Absent) Urine Bacteria (Absent) Urine Glucose (Negative) 08/23/16 Range/Units 12:50 WBC (3.5-10.8) 10^3/ul RBC (4.0-5.4) 10^6/ul Hgb (14.0-18.0) g/dl Hct (42-52) % MCV (80-94) fL MCH (27-31) pg MCHC (31-36) g/dl RDW (10.5-15) % Plt Count (150-450) 10^3/ul MPV (7.4-10.4) um3 Neut % (Auto) (38-83) % Lymph % (Auto) (25-47) % Davidson % (Auto) (1-9) % Eos % (Auto) (0-6) % Baso % (Auto) (0-2) % Absolute Neuts (auto) (1.5-7.7) 10^3/ul Absolute Lymphs (auto) (1.0-4.8) 10^3/ul Absolute Monos (auto) (0-0.8) 10^3/ul Absolute Eos (auto) (0-0.6) 10^3/ul Absolute Basos (auto) (0-0.2) 10^3/ul Absolute Nucleated RBC 10^3/ul Nucleated RBC % Sodium (133-145) mmol/L Potassium (3.5-5.0) mmol/L Chloride (101-111) mmol/L Carbon Dioxide (22-32) mmol/L Anion Gap (2-11) mmol/L BUN (6-24) mg/dL Creatinine (0.67-1.17) mg/dL Est GFR ( Amer) (>60) Est GFR (Non-Af Amer) (>60) BUN/Creatinine Ratio (8-20) Glucose (70-100) mg/dL Lactic Acid (0.5-2.0) mmol/L Calcium (8.6-10.3) mg/dL Total Bilirubin (0.2-1.0) mg/dL AST (13-39) U/L ALT (7-52) U/L Alkaline Phosphatase (34-104) U/L C-Reactive Protein (< 5.00) mg/L Total Protein (6.4-8.9) g/dL Albumin (3.2-5.2) g/dL Globulin (2-4) g/dL Albumin/Globulin Ratio (1-3) Lipase (11.0-82.0) U/L Urine Color Dina Urine Appearance Cloudy Urine pH 5.0 (5-9) Ur Specific [place] 1.021 (1.010-1.030) Urine Protein 1+(30 mg/dl) H (Negative) Urine Ketones Trace H (Negative) Urine Blood 3+ H (Negative) Urine Nitrate Negative (Negative) Urine Bilirubin Negative (Negative) Urine Urobilinogen Negative (Negative) Ur Leukocyte Esterase Negative (Negative) Urine WBC (Auto) 1+(6-10/hpf) H (Absent) Urine RBC (Auto) 3+(>10/hpf) H (Absent) Ur Squamous Epith Cells Present H (Absent) Urine Bacteria Absent (Absent) Urine Glucose Negative (Negative) Assess/Plan/Problems-Billing Assessment: Mr. Centeno is a 56 yo male with a PMH of asthma who presented to the ED on 08/23/16 with c/o left-sided abdominal pain found to have left proximal ureteral stone 6mm with moderate hydronephrosis - Patient Problems (1) Abdominal pain Comment: - Found to have a left proximal ureteral stone 6mm with moderate hydronephrosis and starnding. Does not appears to be infected, he was given one dose of ceftriaxone in OR setting. Pt was taken to the OR 07/[address] Acosta who was able to remove the stone and placed a stent. Plan to f/u in office next week, appointment already scheduled. - cstable for DC to home (2) Hepatitis C antibody positive in blood Comment: - was checked 08/21 during ED visit - positive Hep C antibody - Pt will need close f/u with PCP to check viral load - CT abdomen showing normal liver. - Hepatitis A, B, HIV nonrecative - Hep C precautions education (3) Asthma Comment: stable. Albuterol PRN (4) DVT prophylaxis Comment: SCDs (5) Full code status Status and Disposition: switch to inpatient. Plan for DC home today.
--- NOTE | 2016-08-26 20:46 | DS ---
DISCHARGE SUMMARY: DATE OF ADMISSION: 08/23/16 DATE OF DISCHARGE: 08/25/16 PROVIDER: Kedar Lima NP ATTENDING PHYSICIAN: Dr. Mccord * (report dictated by Kedar Lima NP) PRIMARY CARE PROVIDER: Dr. Shelia Taylor. UROLOGIST: Dr. Acosta. PRIMARY DIAGNOSIS: 1. Proximal left ureteral calculus "6 mm" with hydronephrosis and left renal colic, status post cystoscopy with left ureteroscopy and laser lithotripsy of proximal left ureteral calculus with left retrograde pyelography and placement of left ureteral stent (6-Singaporean). 2. Hepatitis C SECONDARY DIAGNOSES: 1. Mild asthma. 2. Anxiety. DISCHARGE MEDICATIONS: 1. Clonidine 0.1 mg p.o. daily. 2. Acetaminophen 650 mg p.o. q.4 hours p.r.n., max total dose 4000 mg. 3. Percocet 5/325 mg 1 to 2 tabs p.o. q.4 hours p.r.n. (max daily dose of acetaminophen 4000 mg) HISTORY OF PRESENT ILLNESS AND HOSPITAL COURSE: Please see history and physical by POLLO Graves, for full admission details, but in summary, this is a 56-year-old male with a past medical history of mild intermittent asthma, who presented to the emergency department with left-sided abdominal pain , found to have a 6-mm proximal left ureteral calculus. He did not meet sepsis criteria, appear toxic or appear infected. However, the patient did have intractable pain. He was admitted to the hospitalist service for pain management. He was seen in consultation by Dr. Alex Acosta, urologist, who took the patient to the OR on 08/24/16 where the patient underwent a left ureteral and laser lithotripsy with a placement of left ureteral 6-Singaporean stent. The patient had a lot of pain postoperatively and was quite sedated. The patient was continued on IV fluids and requiring IV pain medications. Today , the patient appears to be much better and states that he is ready for discharge home. He reports he continues to have some light bloody urine which until the stent comes out will be normal. The patient reports pain with urination. He has been straining his urine. The patient reports his lower abdomen and back pain are much better today. He reports understanding of discharge instructions and that he needs to follow up with Dr. Acosta next week for the stent to be removed and have close followup with his PCP. It is noted that the patient had labs drawn on 08/21/16 when the patient presented to the emergency department for abdominal pain. He is noted to have a hepatitis C reactive antibody. His other hepatitis A and B are nonreactive as well as HIV is nonreactive. This was discussed with the patient. He reports no prior history of hepatitis C. He denies any history of IV injection drug use. He has not previously had blood transfusions in the past. He has been instructed that he needs to follow closely with his primary care to have further outpatient workup to see if he has a viral load. The patient states understanding that this is very important as well he was instructed on hepatitis C precautions. The patient did undergo an abdomen and pelvis CT on this admission which showed normal appearance in his liver. The CT did read "the liver, spleen, pancreas, and adrenal glands are grossly normal in appearance. In the proximal left ureter, there is a 6-mm calcification with lateral hydronephrosis and mild perinephric stranding. There are additional chronic degenerative findings described in the body of the report, unlikely be the patient's current presentation." Looking at the body of the report, it reads "degenerative changes include multilevel loss of intervertebral disk height involving the lower thoracic and lumbar spine. There are no sinister bone lesions. The mildly calcified abdominal aorta and iliac arteries are normal in course and diameter." Please see report for full details. DISCHARGE PLAN: 1. Follow up with Dr. Acosta, 09/01/16, at 2:30 p.m. for stent removal. 2. Follow up with Dr. Shelia Taylor within 5 to 7 days. The patient was instructed he needs to make this appointment himself. CONDITION ON DISCHARGE: Stable. TIME SPENT: Approximately 60 minutes was spent on this discharge. KEDAR LIMA NP CC: Dr. Shelia Taylor* [id number]/[facility] #: [id number] MTDD
== END 2016-08-25 13:15 | disposition home or self-care (01) | DRG 446 ==
LOC: ED 07:50 → MED 15:37 → OBSVTOIN 08-24 15:30
PROVIDERS: ADMIT Internal Medicine; ATTEND Hospitalist
PROC: 0T778DZ Dilation of Left Ureter with Intraluminal Device, Via Natural or Artificial Opening Endoscopic (ICD-10-PCS; 2016-08-24)
PROC: BT1FYZZ Fluoroscopy of Left Kidney, Ureter and Bladder using Other Contrast (ICD-10-PCS; 2016-08-24)
PROC: 0TC78ZZ Extirpation of Matter from Left Ureter, Via Natural or Artificial Opening Endoscopic (ICD-10-PCS; principal; 2016-08-24 11:00)
DX: N13.2 Hydronephrosis with renal and ureteral calculous obstruction (principal); E87.6 Hypokalemia; J45.909 Unspecified asthma, uncomplicated; F41.9 Anxiety disorder, unspecified; R76.0 Raised antibody titer; F17.210 Nicotine dependence, cigarettes, uncomplicated; Z79.899 Other long term (current) drug therapy
CPT/HCPCS: 36415; 71010; 74000; 74176; 74420; 80048; 80053; 81003; 81015; 82365; 83605; 83690; 85025; 86140; 88300; 90686; 90732; A9270-GY; C1876; G0378; J0696; J1170; J1885; J2270; J2405; J3010; J3480

== ENCOUNTER 2017-03-18 12:31 | Emergency (ER) | payer OTHER ==
[2017-03-18] MEDS ORDERED: Morphine INJ* 4 MG/ML 1 ML SYRINGE IV ONE (14:10)
[2017-03-18] MEDS ORDERED: Ondansetron INJ* 2 MG/ML VIAL IV ONE (14:10)
[2017-03-18 14:25] LABS: Hematocrit 38 % (42-52); Hemoglobin 12.6 g/dl (14.0-18.0); Mean Corpuscular HGB Conc 33 g/dl (31-36); Mean Corpuscular Hemoglobin 29 pg (27-31); Mean Corpuscular Volume 89 fL (80-94); Mean Platelet Volume 7 um3 (7.4-10.4); Red Blood Count 4.32 10^6/ul (4.0-5.4); Red Cell Distribution Width 14 % (10.5-15); White Blood Count 13.5 10^3/ul (3.5-10.8)
[2017-03-18 14:44] LABS: ALT 45 U/L (7-52); AST 30 U/L (13-39); Albumin 3.3 g/dL (3.2-5.2); Alkaline Phosphatase 68 U/L (34-104); Anion Gap 5 mmol/L (2-11); BUN/Creatinine Ratio 21.8 (8-20); Blood Urea Nitrogen 17 mg/dL (6-24); CO2 Carbon Dioxide 26 mmol/L (22-32); Calcium 9.1 mg/dL (8.6-10.3); Chloride 106 mmol/L (101-111); EGFR African American 133.4 (>60); EGFR Non-African American 103.7 (>60); Glucose 96 mg/dL (70-100); Lipase < 10 U/L (11.0-82.0); Potassium 3.9 mmol/L (3.5-5.0); Sodium 137 mmol/L (133-145); Total Protein 7.3 g/dL (6.4-8.9)
--- NOTE | 2017-03-18 15:35 | RAD ---
Indication: RIGHT upper quadrant /flank pain radiating to the back. History of urolithiasis. Comparison: August 23, 2016 CT. November 27, 2015 RIGHT upper quadrant ultrasound. Technique: RIGHT upper quadrant ultrasound. Report: Appropriate direction flow documented in the portal and hepatic veins. 19.6 cm liver is normal in echogenicity. Negative for focal hepatic lesions. Negative for intrahepatic biliary dilatation. 3.5 mm common bile duct. Contracted gallbladder limiting assessment. Contracted state likely accounts for minimal prominence of the gallbladder wall measuring up to 4.5 mm. No visualized gallstones, biliary sludge, or pericholecystic fluid however assessment is limited due to contracted state. Patient indicates no food intake since yesterday. Negative for sonographic Hicks's sign. The pancreas is obscured secondary to bowel gas. Negative for ascites. 13.1 x 6.1 x 5.9 cm RIGHT kidney is remarkable for a 0.7 cm maximum dimension echogenic focus which appears to be within the renal pelvis. Negative for associated shadowing to confirm that this represents a stone. Negative for hydronephrosis. 1.0 cm simple cortical cyst at the midpole of the RIGHT kidney. IMPRESSION: 1. Mildly enlarged liver without abnormal echogenicity or focal lesions. Negative for biliary dilatation. 2. No visualized gallstones, biliary sludge, or pericholecystic fluid however assessment is limited due to contracted state of the gallbladder. 3. Potential although not definitive for 0.5 mm stone at the RIGHT renal pelvis, a new finding compared with the prior exams. Negative for RIGHT hydronephrosis.
[2017-03-18] MEDS: NS 0.9% 1000 ML* 2,000 ML IV ONE ×2 (15:45→15:46)
--- NOTE | 2017-03-18 16:20 | RAD ---
INDICATION: Right flank pain COMPARISON: CT August 23, 2016 TECHNIQUE: Noncontrast axial source images were acquired from the level hemidiaphragms to the symphysis pubis as part of CT imaging for renal stone. Lung bases: There is a small infiltrate in the right lung base with a right-sided pleural effusion. This is new. There is minimal left basilar atelectasis with trace pleural fluid. Liver: There is hepatomegaly. Noncontrast imaging shows no evidence of a hepatic mass or ductal dilatation. Gallbladder: There are no calcified gallstones. There is no evidence of wall thickening or pericholecystic fluid.. Spleen: The spleen is normal in size. The noncontrast CT appearance is normal. Pancreas: Noncontrast imaging shows no pancreatic mass or ductal dilitation. Adrenal glands: No masses are identified. Kidneys/Bladder: There is no evidence of nephrolithiasis or CT evidence of hydronephrosis. The left ureteral stone has passed. Noncontrast imaging shows no evidence of a renal mass. The bladder is unremarkable. There is a phlebolith minor pelvis on the left, unchanged. Adenopathy: There is no evidence of intraperitoneal or retroperitoneal adenopathy. Evaluation is limited without oral contrast. Fluid collections: There are no free or localized fluid collections. Vessels: The aorta and iliac vessels are normal in caliber. There are no significant atherosclerotic changes. The IVC appears normal Pelvic organs: The prostate and seminal vesicles appear normal GI tract: Evaluation of the bowel is limited without oral contrast. Evaluation of the bowel is limited without oral contrast. The upper GI tract is grossly normal. There is large amount of stool throughout the colon. There are no obstructive findings. The appendix is visualized and appears normal. Soft tissues: No soft tissue abnormalities of the extraperitoneal abdomen or pelvis are identified. Osseous structures: There are no acute osseous findings. IMPRESSION: 1. Small right sided pleural effusion and right infiltrate or atelectasis. Trace pleural fluid on the left. 2. Hepatomegaly 3. No CT evidence of urolithiasis. Interval passage of left ureteral stone. 4. Large amount retained stool.
[2017-03-18 16:39] LABS: Urine Bacteria 1+ (Absent); Urine Bilirubin Negative (Negative); Urine Glucose Negative (Negative); Urine Nitrite Negative (Negative)
[2017-03-18] MEDS ORDERED: Levofloxacin 750 MG IVPREMIX(* 750 MG/150 ML BAG IVPB ONE (16:48)
[2017-03-18] MEDS ORDERED: Levofloxacin TAB* 250 MG PO ONE (17:02)
--- NOTE | 2017-03-18 17:25 | ED ---
GI/ HPI - HPI Summary HPI Summary: 56M presents with right flank pain for 5 days. He states his pain wraps around to the front of his abdomen in RUQ. He has been having fever. admits to nausea and vomiting. admits to cough. denies any SOB or chest pain. no previous abdominal surgeries. history of kidney stones. states does not feel like kidney stone. pain is 9/10. has not taken anything for pain. admits to dysuria and frequency. denies any diarrhea or constipation. no injury to back. no loss of bowel or bladder or saddle anasethesia. - History of Current Complaint Chief Complaint: EDBackInjuryPain Time Seen by Provider: 03/18/17 14:02 Stated Complaint: BACK/CHEST PAIN Pain Intensity: 10 - Additional Pertinent History Primary Care Physician: JN - Allergy/Home Medications Allergies/Adverse Reactions: Allergies Allergy/AdvReac Type Severity Reaction Status Date / Time Ibuprofen Allergy Intermediate Rash Verified 08/21/16 10:35 Tramadol Allergy Intermediate Rash Verified 08/21/16 10:35 Iodinated Diagnostic Agents AdvReac Vomiting Verified 08/23/16 15:47 CT Contrast AdvReac Intermediate Vomiting Uncoded 08/23/16 15:47 PMH/Surg Hx/FS Hx/Imm Hx Endocrine/Hematology History: Reports: Hx Unexplained Bleeding - rectally Denies: Hx Anticoagulant Therapy, Hx Diabetes, Hx Thyroid Disease Cardiovascular History: Reports: Hx Hypertension - NO MEDS, Other Cardiovascular Problems/Disorders - HYPERTENSION Denies: Hx Congestive Heart Failure, Hx Pacemaker/ICD Respiratory History: Reports: Hx Asthma, Other Respiratory Problems/Disorders - R PNEUMONTHORAX PER PT Comment Only: Hx Chronic Obstructive Pulmonary Disease (COPD) - ? COPD GI History: Reports: Hx Hiatal Hernia - HX OF- HAD SURGERY, Other GI Disorders - right pneumothorax 2011 Denies: Hx Ulcer History: Denies: Hx Dialysis, Hx Renal Disease Musculoskeletal History: Reports: Other Musculoskeletal History - multiple rib fx from tombstone falling on pt Sensory History: Denies: Hx Contacts or Glasses, Hx Hearing Aid Opthamlomology History: Denies: Hx Contacts or Glasses Neurological History: Reports: Other Neuro Impairments/Disorders - depression Denies: Hx Dementia, Hx Seizures Psychiatric History: Reports: Hx Depression Denies: Hx Panic Disorder, Hx Substance Abuse - Surgical History Surgery Procedure, Year, and Place: hiatal hernia repair 2007, NOSE 70s, Hx Anesthesia Reactions: No - Immunization History Date of Tetanus Vaccine: unknown Date of Influenza Vaccine: unknown Infectious Disease History: No Infectious Disease History: Denies: Hx Hepatitis, Hx Human Immunodeficiency Virus (HIV), 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, Traveled Outside the [place] in Last 30 Days - Family History Known Family History: Positive: Unknown Negative: Cardiac Disease, Hypertension, Diabetes - Social History Alcohol Use: None Hx Substance Use: No Substance Use Type: Reports: Other Substance Use Comment - 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 Negative: Shortness Of Breath Positive: Abdominal Pain, Vomiting, Nausea. Negative: Diarrhea Positive: dysuria, flank pain All Other Systems Reviewed And Are Negative: Yes Physical Exam Triage Information Reviewed: Yes Vital Signs On Initial Exam: Initial Vitals Temp Pulse Resp BP Pulse Ox 100.7 F 95 22 135/77 96 03/18/17 12:47 03/18/17 12:47 03/18/17 12:47 03/18/17 12:47 03/18/17 12:47 Vital Signs Reviewed: Yes Appearance: Positive: Ill-Appearing Skin: Positive: Warm, Dry Head/Face: Positive: Normal Head/Face Inspection Eyes: Positive: Normal, EOMI, REFUGIO, Conjunctiva Clear ENT: Positive: Normal ENT inspection, Pharynx normal, TMs normal Respiratory/Lung Sounds: Positive: Clear to Auscultation, Breath Sounds Present Cardiovascular: Positive: Normal, RRR Abdomen Description: Positive: Soft, CVA Tenderness (R), Other: - tenderness in RUQ Bowel Sounds: Positive: Present Diagnostics - Vital Signs Vital Signs Temp Pulse Resp BP Pulse Ox 03/18/17 15:18 100.7 F 95 20 135/77 96 03/18/17 12:47 100.7 F 95 22 135/77 96 - Laboratory Lab Results: Lab Results 03/18/17 03/18/17 03/18/17 Range/Units 14:15 14:15 14:15 WBC 13.5 H (3.5-10.8) 10^3/ul RBC 4.32 (4.0-5.4) 10^6/ul Hgb 12.6 L (14.0-18.0) g/dl Hct 38 L (42-52) % MCV 89 (80-94) fL MCH 29 (27-31) pg MCHC 33 (31-36) g/dl RDW 14 (10.5-15) % Plt Count 222 (150-450) 10^3/ul MPV 7 L (7.4-10.4) um3 Neut % (Auto) 80.4 (38-83) % Lymph % (Auto) 9.5 L (25-47) % [place] % (Auto) 9.1 H (1-9) % Eos % (Auto) 0.4 (0-6) % Baso % (Auto) 0.6 (0-2) % Absolute Neuts (auto) 10.8 H (1.5-7.7) 10^3/ul Absolute Lymphs (auto) 1.3 (1.0-4.8) 10^3/ul Absolute Monos (auto) 1.2 H (0-0.8) 10^3/ul Absolute Eos (auto) 0 (0-0.6) 10^3/ul Absolute Basos (auto) 0.1 (0-0.2) 10^3/ul Absolute Nucleated RBC 0 10^3/ul Nucleated RBC % 0 Sodium 137 (133-145) mmol/L Potassium 3.9 (3.5-5.0) mmol/L Chloride 106 (101-111) mmol/L Carbon Dioxide 26 (22-32) mmol/L Anion Gap 5 (2-11) mmol/L BUN 17 (6-24) mg/dL Creatinine 0.78 (0.67-1.17) mg/dL Est GFR ( Amer) 133.4 (>60) Est GFR (Non-Af Amer) 103.7 (>60) BUN/Creatinine Ratio 21.8 H (8-20) Glucose 96 (70-100) mg/dL Lactic Acid 0.7 (0.5-2.0) mmol/L Calcium 9.1 (8.6-10.3) mg/dL Total Bilirubin 1.10 H (0.2-1.0) mg/dL AST 30 (13-39) U/L ALT 45 (7-52) U/L Alkaline Phosphatase 68 (34-104) U/L C-React Prot High Sens 84.94 mg/L Total Protein 7.3 (6.4-8.9) g/dL Albumin 3.3 (3.2-5.2) g/dL Globulin 4.0 (2-4) g/dL Albumin/Globulin Ratio 0.8 L (1-3) Lipase < 10 L (11.0-82.0) U/L Urine Color Urine Appearance Urine pH (5-9) Ur Specific [place] (1.010-1.030) Urine Protein (Negative) Urine Ketones (Negative) Urine Blood (Negative) Urine Nitrate (Negative) Urine Bilirubin (Negative) Urine Urobilinogen (Negative) Ur Leukocyte Esterase (Negative) Urine WBC (Auto) (Absent) Urine RBC (Auto) (Absent) Urine Bacteria (Absent) Urine Glucose (Negative) 03/18/17 Range/Units 15:48 WBC (3.5-10.8) 10^3/ul RBC (4.0-5.4) 10^6/ul Hgb (14.0-18.0) g/dl Hct (42-52) % MCV (80-94) fL MCH (27-31) pg MCHC (31-36) g/dl RDW (10.5-15) % Plt Count (150-450) 10^3/ul MPV (7.4-10.4) um3 Neut % (Auto) (38-83) % Lymph % (Auto) (25-47) % [place] % (Auto) (1-9) % Eos % (Auto) (0-6) % Baso % (Auto) (0-2) % Absolute Neuts (auto) (1.5-7.7) 10^3/ul Absolute Lymphs (auto) (1.0-4.8) 10^3/ul Absolute Monos (auto) (0-0.8) 10^3/ul Absolute Eos (auto) (0-0.6) 10^3/ul Absolute Basos (auto) (0-0.2) 10^3/ul Absolute Nucleated RBC 10^3/ul Nucleated RBC % Sodium (133-145) mmol/L Potassium (3.5-5.0) mmol/L Chloride (101-111) mmol/L Carbon Dioxide (22-32) mmol/L Anion Gap (2-11) mmol/L BUN (6-24) mg/dL Creatinine (0.67-1.17) mg/dL Est GFR ( Amer) (>60) Est GFR (Non-Af Amer) (>60) BUN/Creatinine Ratio (8-20) Glucose (70-100) mg/dL Lactic Acid (0.5-2.0) mmol/L Calcium (8.6-10.3) mg/dL Total Bilirubin (0.2-1.0) mg/dL AST (13-39) U/L ALT (7-52) U/L Alkaline Phosphatase (34-104) U/L C-React Prot High Sens mg/L Total Protein (6.4-8.9) g/dL Albumin (3.2-5.2) g/dL Globulin (2-4) g/dL Albumin/Globulin Ratio (1-3) Lipase (11.0-82.0) U/L Urine Color [place] Urine Appearance Cloudy Urine pH 6.0 (5-9) Ur Specific [place] 1.026 (1.010-1.030) Urine Protein Negative (Negative) Urine Ketones Negative (Negative) Urine Blood 1+ H (Negative) Urine Nitrate Negative (Negative) Urine Bilirubin Negative (Negative) Urine Urobilinogen Positive H (Negative) Ur Leukocyte Esterase 1+ H (Negative) Urine WBC (Auto) 2+(11-20/hpf) H (Absent) Urine RBC (Auto) 1+(3-5/hpf) H (Absent) Urine Bacteria 1+ H (Absent) Urine Glucose Negative (Negative) Result Diagrams: 03/18/17 14:15 03/18/17 14:15 Lab Statement: Any lab studies that have been ordered have been reviewed, and results considered in the medical decision making process. - CT abd CT Interpretation: Positive (See Comments) - IMPRESSION: 1. Small right sided pleural effusion and right infiltrate or atelectasis. Trace pleural fluid on the left. 2. Hepatomegaly 3. No CT evidence of urolithiasis. Interval passage of left ureteral stone. 4. Large amount retained stool. CT Interpretation Completed By: Radiologist - Ultrasound No standard instances Ultrasound Interpretation: Positive (See Comments) - IMPRESSION: 1. Mildly enlarged liver without abnormal echogenicity or focal lesions. Negative for biliary dilatation. 2. No visualized gallstones, biliary sludge, or pericholecystic fluid however assessment is limited due to contracted state of the gallbladder. 3. Potential although not definitive for 0.5 mm stone at the RIGHT renal pelvis, a new finding compared with the prior exams. Negative for RIGHT hydronephrosis. Ultrasound Interpretation Completed By: Radiologist ZEV Course/Dx - Course Course Of Treatment: 56M presents with right flank pain for 5 days. He states his pain wraps around to the front of his abdomen in RUQ. He has been having fever. admits to nausea and vomiting. admits to cough. denies any SOB or chest pain. no previous abdominal surgeries. history of kidney stones. states does not feel like kidney stone. pain is 9/10. has not taken anything for pain. admits to dysuria and frequency. denies any diarrhea or constipation. no injury to back. on exam pos CVA tenderness right and RUQ. u/s shows no gallbladder issue. CT shows possible pneumonia. wbc 13. lactic normal. will treat for pyelo and pneumonia with levaquin which will cover both. patient understands and agrees with plan. - Diagnoses Differential Diagnoses - Male: Cholecystitis, Cholelithiasis, Pneumonia, Pyelonephritis, Ureteral Calculi, Urinary Tract Infection Provider Diagnoses: Pyelonephritis, Pneumonia Discharge - Discharge Plan Condition: Good Disposition: HOME Prescriptions: Levofloxacin TAB* [Levaquin TAB*] 750 mg PO DAILY #13 tab Ondansetron ODT TAB* [Zofran 4 MG Odt TAB*] 4 mg PO Q6H PRN #16 tab.odt PRN Reason: Nausea oxyCODONE/Acetamin 5/325 MG* [Percocet 5/325 TAB*] 1 tab PO Q6H PRN #16 tab MDD 4 PRN Reason: Pain Patient Education Materials: Kidney Infection (ED), Pneumonia (ED) Referrals: [facility] [place] [facility] [Outside] Additional Instructions: CT shows possible pneumonia Take levaquin once a day for 14 days Take Tylenol every 6 hours, use narcotic for break through pain Take zofran every 6 hours for nausea Drink plenty of fluids Establish care with primary to follow up Return to ED if develop severe vomiting, or any new or worsening symptoms
[2017-03-18 19:27] VITALS: BP 133/79
--- NOTE | 2017-03-21 09:32 | PN ---
Progress Note - Progress Note Date of Service: 03/18/17 Note: Urine culture grew Klebsiella PNA Patient placed on Levaquin prior to discharge Levaquin is sensitive to organism. Nothing further at this time. Nurys Ferris PA-C
== END 2017-03-18 19:27 | disposition home or self-care (01) ==
LOC: ED 12:31
DX: N12 Tubulo-interstitial nephritis, not specified as acute or chronic (principal); J18.9 Pneumonia, unspecified organism; R10.84 Generalized abdominal pain; R05 Cough; R11.2 Nausea with vomiting, unspecified; F17.210 Nicotine dependence, cigarettes, uncomplicated
CPT/HCPCS: 36415; 74176; 76705; 80053; 81003; 81015; 83605; 83690; 85025; 86141; 87077; 87086; 87186; 96374; 96375; 99283; A9270-GY; J2270; J2405

== ENCOUNTER 2017-03-24 14:43 | Emergency (ER) | payer OTHER ==
[2017-03-24 15:00] VITALS: BP 139/78
--- NOTE | 2017-03-24 18:22 | RAD ---
INDICATION: Back pain COMPARISON: Lateral chest radiograph August 21, 2016 TECHNIQUE: Routine 2 view imaging was performed FINDINGS: Bones: There are no acute bony findings. There are arthritic changes consisting of moderate spurring of the mid and lower thoracic spine. There is endplate sclerosis.. Alignment: Mild kyphosis Disc spaces: The disc spaces are well-maintained Soft tissues: There are no soft tissue abnormalities. IMPRESSION: MODERATE DEGENERATIVE SPURRING OF THE THORACIC SPINE WITH KYPHOSIS
--- NOTE | 2017-03-24 18:22 | RAD ---
INDICATION: Back pain COMPARISON: Lumbar spine October 03, 2013 TECHNIQUE: Routine PA, lateral, and oblique imaging was performed . FINDINGS: Bones: There are no acute bony findings. There are minor arthritic changes consisting of multilevel degenerative vertebral spurring and endplate sclerosis. There is facet arthropathy at L5-S1. There are no additional significant bony findings. Alignment: Normal Disc spaces: The disc spaces are well-maintained Soft tissues: There are no soft tissue abnormalities. IMPRESSION: MINOR OSTEOARTHRITIS. NO ACUTE FINDINGS
--- NOTE | 2017-03-24 18:33 | ED ---
Back Pain - HPI Summary HPI Summary: 56 male presents with complaints of lower right sided back pain that began about 10 days ago and has not gotten any better. States he was here approximately 1 week ago and treated for UTI and pneumonia. No longer having any of those symptoms. States he was having dysuria but he feels as though it is better, denies abdominal pain, nausea, vomiting, fever and chills. No other complaints at this time other than the pain. States changing positions and walking makes pain worse, pain is better when laying down. Tried taking motrin and percocet however has not had any relief. Denies any known recent trauma or injury. States the pain is a dull ache and constant. Denies urinary symptoms at this time. No saddle anesthesia, no bladder/bowel incontinence. Denies radiation of pain. Denies numbness/tingling. No significant PMHx. - History of Current Complaint Chief Complaint: EDBackInjuryPain Stated Complaint: BACK PAIN Hx Obtained From: Patient Onset/Duration: Sudden Onset, Lasting Weeks - 1.5 Onset/Duration: Started Weeks Ago, Atraumatic - woke up with pain, unknown, Still Present Back Pain Location: Is Discrete @ - lumbar back at level L1-L4 region right side Severity Initially: Moderate Severity Currently: Moderate Pain Intensity: 8 Pain Scale Used: 0-10 Numeric Character: Sharp - with certain movements, Dull, Aching Aggravating Symptom(s): Movement Alleviating Symptom(s): Rest Associated Signs And Symptoms: Negative: Swelling, Redness, Weakness, Numbness, Tingling, Flank Pain, Bladder Incontinence, Bowel Incontinence, Pain with Weight Bearing - Risk Factors Cauda Equina Risk Factors: Negative Epidural Abscess Risk Factors: Negative - Allergies/Home Medications Allergies/Adverse Reactions: Allergies Allergy/AdvReac Type Severity Reaction Status Date / Time Ibuprofen Allergy Intermediate Rash Verified 08/21/16 10:35 Tramadol Allergy Intermediate Rash Verified 08/21/16 10:35 Iodinated Diagnostic Agents AdvReac Vomiting Verified 08/23/16 15:47 CT Contrast AdvReac Intermediate Vomiting Uncoded 08/23/16 15:47 PMH/Surg Hx/FS Hx/Imm Hx Endocrine/Hematology History: Reports: Hx Unexplained Bleeding - rectally Denies: Hx Anticoagulant Therapy, Hx Diabetes, Hx Thyroid Disease Cardiovascular History: Reports: Hx Hypertension - NO MEDS, Other Cardiovascular Problems/Disorders - HYPERTENSION Denies: Hx Congestive Heart Failure, Hx Pacemaker/ICD Respiratory History: Reports: Hx Asthma, Other Respiratory Problems/Disorders - R PNEUMONTHORAX PER PT Comment Only: Hx Chronic Obstructive Pulmonary Disease (COPD) - ? COPD GI History: Reports: Hx Hiatal Hernia - HX OF- HAD SURGERY, Other GI Disorders - right pneumothorax 2011 Denies: Hx Ulcer History: Denies: Hx Dialysis, Hx Renal Disease Musculoskeletal History: Reports: Other Musculoskeletal History - multiple rib fx from tombstone falling on pt Sensory History: Denies: Hx Contacts or Glasses, Hx Hearing Aid Opthamlomology History: Denies: Hx Contacts or Glasses Neurological History: Reports: Other Neuro Impairments/Disorders - depression Denies: Hx Dementia, Hx Seizures Psychiatric History: Reports: Hx Depression Denies: Hx Panic Disorder, Hx Substance Abuse - Surgical History Surgery Procedure, Year, and Place: hiatal hernia repair 2006, NOSE 70s, Hx Anesthesia Reactions: No - Immunization History Date of Tetanus Vaccine: unknown Date of Influenza Vaccine: unknown Immunizations Up to Date: Yes Infectious Disease History: No Infectious Disease History: Denies: Hx Hepatitis, Hx Human Immunodeficiency Virus (HIV), 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, Traveled Outside the [place] in Last 30 Days - Family History Known Family History: Positive: Unknown Negative: Cardiac Disease, Hypertension, Diabetes - Social History Alcohol Use: None Hx Substance Use: Yes Substance Use Type: Reports: None, Other Substance Use Comment - Amount & Last Used: hx Hx Tobacco Use: No Smoking Status (MU): Former Smoker Review of Systems Constitutional: Negative Cardiovascular: Negative Respiratory: Negative Positive: see HPI - resolved, was having symptoms at last visit Positive: Arthralgia, Myalgia - lower right back Neurological: Negative Psychological: Normal All Other Systems Reviewed And Are Negative: Yes Physical Exam Triage Information Reviewed: Yes Vital Signs On Initial Exam: Initial Vitals Temp Pulse Resp BP Pulse Ox 98.8 F 86 16 139/78 98 03/24/17 14:46 03/24/17 14:46 03/24/17 14:46 03/24/17 14:46 03/24/17 14:46 Vital Signs Reviewed: Yes Appearance: Positive: Well-Appearing, Pain Distress - mild Skin: Positive: Warm, Skin Color Reflects Adequate Perfusion, Dry, Other - no ecchymosis or edema noted. Negative: Cold, Numb, Soft, Cyanosis @, Pale, Erythema @ Head/Face: Positive: Normal Head/Face Inspection Eyes: Positive: Conjunctiva Clear ENT: Positive: Hearing grossly normal Neck: Positive: Supple, Nontender, No Lymphadenopathy Respiratory/Lung Sounds: Positive: Clear to Auscultation, Breath Sounds Present , Decreased Breath Sounds - slightly decreased throughout, possible due to patient's capability of taking deep breaths. Negative: Rales, Rhonchi, Wheezes Cardiovascular: Positive: Normal, RRR, Pulses are Symmetrical in both Upper and Lower Extremities. Negative: Murmur, Rub Abdomen Description: Positive: Nontender, No Organomegaly, Soft. Negative: Bruit, CVA Tenderness (R), CVA Tenderness (L), Distended, Peritoneal Signs Bowel Sounds: Positive: Present Musculoskeletal: Positive: Normal, Strength/ROM Intact, Pain @ - on palpation of right lumbar flank area. Negative: Limited @, Interruption @ Neurological: Positive: Normal, Sensory/Motor Intact - sensation intact, Alert, Oriented to Person Place, Time, Reflexes Intact, NV Bundle Intact Distally, Normal Gait Psychiatric: Positive: Affect/Mood Appropriate Diagnostics - Vital Signs Vital Signs Temp Pulse Resp BP Pulse Ox 03/24/17 14:46 98.8 F 86 16 139/78 98 - Laboratory Lab Statement: Any lab studies that have been ordered have been reviewed, and results considered in the medical decision making process. - Radiology lumbosacral Xray Interpretation: No Acute Changes - MODERATE DEGENERATIVE SPURRING OF THE THORACIC SPINE WITH KYPHOSIS Radiology Interpretation Completed By: Radiologist thoracic Xray Interpretation: No Acute Changes - MINOR OSTEOARTHRITIS. NO ACUTE FINDINGS Radiology Interpretation Completed By: Radiologist Re-Evaluation - Re-Evaluation First Eval Re-Evaluation Time: 19:00 Change: Improved - had relief after pain medication and muscle relaxer, ready to be d/c Back Pain Course/Dx - Course Course Of Treatment: repeat urinalysis, completely negative. normal vitals. obtained lumbar and thoracic x-ray which were normal other than some osteoarthritis and degenerative changes. no concern for any urinary/genitalia or abdominal etiology due to vitals, HPI and PE fidings. Appears patient is suffering from a muscle strain, back pain from injury. tender on palpation of lower paraspinal ride side area of back. no CVA tenderness. will treat with pain management and muscle relaxer. Istop reference #: [id number]. given pain management and muscle relaxer in ED and had some relief. Aware of worsening signs and symptoms. Full work up was done ~ 7 days ago in ED without significant findings other than uti and pneumonia which has since resolve/been treated. Follow up PCP and ortho as MRI may be required. Patient agrees and understands. RICE and heating pads. - Diagnoses Differential Diagnosis/HQI/PQRI: Positive: Arthritis, Fracture, Herniated Disc, Strain, Sprain Provider Diagnoses: Back pain, Lumbosacral strain Discharge - Discharge Plan Condition: Stable Disposition: HOME Prescriptions: Cyclobenzaprine TAB* [Flexeril 10 MG TAB*] 10 mg PO BEDTIME #8 tab HYDROcodone/ACETAMIN 5-325 MG* [[place] 5-325 TAB*] 1 tab PO Q4H PRN #8 tab MDD 3 PRN Reason: Pain Patient Education Materials: Low Back Strain (ED) Referrals: Morris De Leon MD [Medical Doctor] - Yony Barry NP [Primary Care Provider] - Additional Instructions: Take prescribed medication as directed only as needed for pain. Take muscle relaxer at bedtime. Rest and apply warm compresses. Follow up with PCP or back doctor if symptoms persist or worsen.
[2017-03-24] MEDS ORDERED: HYDROcodone/ACETAMIN 5-325 MG* 1 TAB PO ONE (18:48)
[2017-03-24] MEDS ORDERED: Orphenadrine Citrate IV* 30 MG/ML 2 ML VIAL IM ONE (18:49)
[2017-03-24 19:30] LABS: Urine Bilirubin Negative (Negative); Urine Glucose Negative (Negative); Urine Nitrite Negative (Negative)
== END 2017-03-24 20:02 | disposition home or self-care (01) ==
LOC: ED 14:43
DX: S33.5XXA Sprain of ligaments of lumbar spine, initial encounter (principal); X58.XXXA Exposure to other specified factors, initial encounter; Y92.9 Unspecified place or not applicable; Z87.891 Personal history of nicotine dependence; I10 Essential (primary) hypertension
CPT/HCPCS: 72070; 72110; 81003; 96372; 99282; J2360

== ENCOUNTER 2017-04-01 15:03 | Emergency (ER) | payer OTHER ==
[2017-04-01 17:47] LABS: Hematocrit 41 % (42-52); Hemoglobin 13.6 g/dl (14.0-18.0); Mean Corpuscular HGB Conc 33 g/dl (31-36); Mean Corpuscular Hemoglobin 29 pg (27-31); Mean Corpuscular Volume 88 fL (80-94); Mean Platelet Volume 7 um3 (7.4-10.4); Red Blood Count 4.64 10^6/ul (4.0-5.4); Red Cell Distribution Width 14 % (10.5-15); White Blood Count 10.7 10^3/ul (3.5-10.8)
[2017-04-01 18:06] LABS: Albumin 3.6 g/dL (3.2-5.2); BUN/Creatinine Ratio 19.3 (8-20); Calcium 9.3 mg/dL (8.6-10.3); EGFR African American 116.1 (>60); EGFR Non-African American 90.2 (>60); Globulin 4.3 g/dL (2-4); Potassium 3.6 mmol/L (3.5-5.0); Total Bilirubin 0.7 mg/dL (0.2-1.0); Total Protein 7.9 g/dL (6.4-8.9)
[2017-04-01] MEDS ORDERED: HYDROmorphone INJ* 2 MG/ML CARPUJECT SYRINGE IV SLOW PU ONE ×2 (18:41→19:58)
[2017-04-01 19:52] LABS: Urine Bilirubin Negative (Negative); Urine Glucose Negative (Negative); Urine Nitrite Negative (Negative)
--- NOTE | 2017-04-01 20:54 | RAD ---
CLINICAL HISTORY: Right flank and lower back pain x3 weeks COMPARISON: CT abdomen pelvis dated March 18, 2017 TECHNIQUE: Noncontrast CT examination of the abdomen and pelvis from the lung bases through the initial tuberosities. FINDINGS: VISUALIZED LUNG BASES: The visualized lung bases are grossly clear. There is no pleural effusion. ABDOMEN AND PELVIS: Evaluation of the solid organs and vasculature is limited without intravenous contrast. The liver, spleen, pancreas and adrenal glands are grossly normal in appearance. The gallbladder is normal. The kidneys are normal in appearance without focal mass, calcification or signs of hydronephrosis. Evaluation of the gastrointestinal tract is limited without oral contrast. The small and large bowel are not distended.The patient's normal appendix is identified in the right lower quadrant (axial image 104). Depicted best on the sagittal view images (image 60 of 122) there is questionable long segment wall thickening of the rectosigmoid colon measuring up to 7 mm in thickness. There is no definite pericolonic inflammatory change. There is no gross retroperitoneal or mesenteric lymphadenopathy. The pelvic viscera is normal in appearance. The abdominal aorta and iliac arteries are normal in course and diameter. Degenerative changes include multilevel loss of intervertebral disc height involving the lower thoracic and lumbar spine.There are no sinister bone lesions. IMPRESSION: 1. No renal calculi or signs of hydroureteronephrosis. 2. Questionable mild wall thickening involving the rectosigmoid colon which may simply be the consequence of underdistention.
[2017-04-01] MEDS ORDERED: Gadoteridol* (CONTRAST) 279.3 MG/ML 10 ML IV ONE (22:02)
--- NOTE | 2017-04-01 22:17 | RAD ---
INDICATION: Low back pain and fever in IV drug abuser. 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 FINDINGS: The spinal cord terminates at the L1/L2 level. There are no intrinsic abnormalities of the visualized cord. There is no intrathecal or epidural fluid collections concerning for abscess. The lower thoracic and lumbar vertebrae are normally aligned. Vertebral body height is adequately maintained and bony signal is within normal limits. At the T12 vertebral body and the L4 vertebral body there are T1 and T2 bright circular foci that are not seen on the fat-saturated postcontrast images. There is no enhancement. There is loss of fluid signal at the L2/L3 level. Axial view images: Less otherwise specified below there is no significant central canal stenosis or neural foraminal stenosis. T12-L1:There is no significant central canal or neural foraminal stenoses. L1-L2: There is no significant central canal or neural foraminal stenoses. L2-L3: Mild broad-based disc protrusion, facet arthropathy and thickening of the ligamentum flavum causes a very mild degree of neural foraminal stenoses bilaterally. L3-L4: There is no significant central canal or neural foraminal stenoses. L4-L5: Mild broad-based disc protrusion combines with facet arthropathy to cause a very mild degree of bilateral neural foraminal stenosis. L5-S1: There is no significant central canal or neural foraminal stenoses. IMPRESSION: Mild degenerative changes of the lumbar spine as described above. No abscess is identified.
[2017-04-01] MEDS ORDERED: oxyCODONE/Acetamin 5/325 MG* TAB PO ONE (22:33)
[2017-04-01 22:54] VITALS: BP 130/85
--- NOTE | 2017-04-09 15:11 | ED ---
Milana Lilly Alfonso, scribed for Austin Talavera MD on 04/01/17 at 1816 . Complex/Multi-Sys Presentation - HPI Summary HPI Summary: This patient is a 56 year old M presenting to [facility] with a chief complaint of constant right-sided low back pain since 3 weeks ago. The patient rates the throbbing pain 9/10 in severity. Symptoms aggravated by coughing, deep breaths, and movement. Symptoms alleviated by nothing. Patient reports fever, chills, diaphoresis, urinary retention, and cough. Patient denies dysuria, hematuria, vomiting, and diarrhea. Heroin use. PMHx includes HTN and asthma. - History Of Current Complaint Chief Complaint: EDBackInjuryPain Time Seen by Provider: 04/01/17 17:21 Hx Obtained From: Patient Onset/Duration: Sudden Onset, Lasting Weeks - 3, Still Present Timing: Constant Severity Currently: Severe Aggravating Factor(s): coughing, deep breaths, and movement Alleviating Factor(s): nothing Associated Signs And Symptoms: Positive: Other - fever, chills, diaphoresis, urinary retention, and cough. Patient denies dysuria, hematuria, vomiting, and diarrhea - Allergies/Home Medications Allergies/Adverse Reactions: Allergies Allergy/AdvReac Type Severity Reaction Status Date / Time Iodinated Diagnostic Agents AdvReac Vomiting Verified 08/23/16 15:47 CT Contrast AdvReac Intermediate Vomiting Uncoded 08/23/16 15:47 PMH/Surg Hx/FS Hx/Imm Hx Endocrine/Hematology History: Reports: Hx Unexplained Bleeding - rectally Denies: Hx Anticoagulant Therapy, Hx Diabetes, Hx Thyroid Disease Cardiovascular History: Reports: Hx Hypertension - NO MEDS, Other Cardiovascular Problems/Disorders - HYPERTENSION Denies: Hx Congestive Heart Failure, Hx Pacemaker/ICD Respiratory History: Reports: Hx Asthma, Other Respiratory Problems/Disorders - R PNEUMONTHORAX PER PT Comment Only: Hx Chronic Obstructive Pulmonary Disease (COPD) - ? COPD GI History: Reports: Hx Hiatal Hernia - HX OF- HAD SURGERY, Other GI Disorders - right pneumothorax 2011 Denies: Hx Ulcer History: Denies: Hx Dialysis, Hx Renal Disease Musculoskeletal History: Reports: Other Musculoskeletal History - multiple rib fx from [place] falling on pt Sensory History: Denies: Hx Contacts or Glasses, Hx Hearing Aid Opthamlomology History: Denies: Hx Contacts or Glasses Neurological History: Reports: Other Neuro Impairments/Disorders - depression Denies: Hx Dementia, Hx Seizures Psychiatric History: Reports: Hx Depression Denies: Hx Panic Disorder, Hx Substance Abuse - Surgical History Surgery Procedure, Year, and Place: hiatal hernia repair 2007, [facility], Hx Anesthesia Reactions: No - Immunization History Date of Tetanus Vaccine: unknown Date of Influenza Vaccine: unknown Infectious Disease History: No Infectious Disease History: Denies: Hx Hepatitis, Hx Human Immunodeficiency Virus (HIV), 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, Traveled Outside the [place] in Last 30 Days - Family History Known Family History: Negative: Cardiac Disease, Hypertension, Diabetes - Social History Alcohol Use: None Hx Substance Use: Yes Substance Use Type: Reports: Heroin Substance Use Comment - Amount & Last Used: used heroin a week ago Hx Tobacco Use: No Smoking Status (MU): Current Every Day Smoker Review of Systems Negative: Fever, Chills, Skin Diaphoresis Negative: Erythema Negative: Sore Throat Negative: Chest Pain Negative: Shortness Of Breath, Cough Negative: Abdominal Pain, Vomiting, Diarrhea, Nausea Positive: other - Urinary retention. Negative: dysuria, hematuria Positive: Other - Right-sided low back pain. Negative: Edema Negative: Rash Neurological: Other - Negative dizziness All Other Systems Reviewed And Are Negative: Yes Physical Exam Triage Information Reviewed: Yes Vital Signs On Initial Exam: Initial Vitals Temp Pulse Resp BP Pulse Ox 98.3 F 91 16 124/82 97 04/01/17 15:08 04/01/17 15:08 04/01/17 15:08 04/01/17 15:08 04/01/17 15:08 Vital Signs Reviewed: Yes Appearance: Positive: Well-Appearing, No Pain Distress Skin: Positive: Warm, Dry Head/Face: Positive: Normal Head/Face Inspection Eyes: Positive: Conjunctiva Clear Neck: Positive: Other: - Musculoskeletal ROM normal neck. (-) JVD, (-) Stridor, (-) Tracheal deviation, (-) Cervical adenopathy Respiratory/Lung Sounds: Positive: Other - Effort normal. (-) Respiratory distress, (-) Wheezes, (-) Rales Cardiovascular: Positive: RRR, Other - Heart sounds normal; Intact distal pulses ; The pedal pulses are 2+ and symmetric. Radial pulses are 2+ and symmetric. (- ) Murmur Abdomen Description: Positive: Soft, Other: - Right CVA tenderness. No rebound.. Negative: Distended, Guarding Musculoskeletal: Positive: Other - Straight leg raise positive on the right.. Negative: Edema Left, Edema Right Neurological: Positive: Alert, Oriented to Person Place, Time Psychiatric: Positive: Affect/Mood Appropriate - Yamilet Coma Scale Coma Scale Total: 15 Diagnostics - Vital Signs Vital Signs Temp Pulse Resp BP Pulse Ox 04/01/17 17:11 98.3 F 86 16 117/89 99 04/01/17 15:08 98.3 F 91 16 124/82 97 - Laboratory Lab Results: Lab Results 04/01/17 04/01/17 04/01/17 Range/Units 17:28 17:28 17:28 WBC 10.7 (3.5-10.8) 10^3/ul RBC 4.64 (4.0-5.4) 10^6/ul Hgb 13.6 L (14.0-18.0) g/dl Hct 41 L (42-52) % MCV 88 (80-94) fL MCH 29 (27-31) pg MCHC 33 (31-36) g/dl RDW 14 (10.5-15) % Plt Count 266 (150-450) 10^3/ul MPV 7 L (7.4-10.4) um3 Neut % (Auto) 77.5 (38-83) % Lymph % (Auto) 13.2 L (25-47) % [place] % (Auto) 5.6 (1-9) % Eos % (Auto) 2.8 (0-6) % Baso % (Auto) 0.9 (0-2) % Absolute Neuts (auto) 8.3 H (1.5-7.7) 10^3/ul Absolute Lymphs (auto) 1.4 (1.0-4.8) 10^3/ul Absolute Monos (auto) 0.6 (0-0.8) 10^3/ul Absolute Eos (auto) 0.3 (0-0.6) 10^3/ul Absolute Basos (auto) 0.1 (0-0.2) 10^3/ul Absolute Nucleated RBC 0 10^3/ul Nucleated RBC % 0 INR (Anticoag Therapy) 1.10 (0.89-1.11) APTT 31.2 (26.0-36.3) seconds Sodium 141 (133-145) mmol/L Potassium 3.6 (3.5-5.0) mmol/L Chloride 106 (101-111) mmol/L Carbon Dioxide 30 (22-32) mmol/L Anion Gap 5 (2-11) mmol/L BUN 17 (6-24) mg/dL Creatinine 0.88 (0.67-1.17) mg/dL Est GFR ( Amer) 116.1 (>60) Est GFR (Non-Af Amer) 90.2 (>60) BUN/Creatinine Ratio 19.3 (8-20) Glucose 82 (70-100) mg/dL Lactic Acid (0.5-2.0) mmol/L Calcium 9.3 (8.6-10.3) mg/dL Total Bilirubin 0.70 (0.2-1.0) mg/dL AST 51 H (13-39) U/L ALT 47 (7-52) U/L Alkaline Phosphatase 89 (34-104) U/L Total Protein 7.9 (6.4-8.9) g/dL Albumin 3.6 (3.2-5.2) g/dL Globulin 4.3 H (2-4) g/dL Albumin/Globulin Ratio 0.8 L (1-3) 04/01/17 Range/Units 17:28 WBC (3.5-10.8) 10^3/ul RBC (4.0-5.4) 10^6/ul Hgb (14.0-18.0) g/dl Hct (42-52) % MCV (80-94) fL MCH (27-31) pg MCHC (31-36) g/dl RDW (10.5-15) % Plt Count (150-450) 10^3/ul MPV (7.4-10.4) um3 Neut % (Auto) (38-83) % Lymph % (Auto) (25-47) % [place] % (Auto) (1-9) % Eos % (Auto) (0-6) % Baso % (Auto) (0-2) % Absolute Neuts (auto) (1.5-7.7) 10^3/ul Absolute Lymphs (auto) (1.0-4.8) 10^3/ul Absolute Monos (auto) (0-0.8) 10^3/ul Absolute Eos (auto) (0-0.6) 10^3/ul Absolute Basos (auto) (0-0.2) 10^3/ul Absolute Nucleated RBC 10^3/ul Nucleated RBC % INR (Anticoag Therapy) (0.89-1.11) APTT (26.0-36.3) seconds Sodium (133-145) mmol/L Potassium (3.5-5.0) mmol/L Chloride (101-111) mmol/L Carbon Dioxide (22-32) mmol/L Anion Gap (2-11) mmol/L BUN (6-24) mg/dL Creatinine (0.67-1.17) mg/dL Est GFR ( Amer) (>60) Est GFR (Non-Af Amer) (>60) BUN/Creatinine Ratio (8-20) Glucose (70-100) mg/dL Lactic Acid 1.0 (0.5-2.0) mmol/L Calcium (8.6-10.3) mg/dL Total Bilirubin (0.2-1.0) mg/dL AST (13-39) U/L ALT (7-52) U/L Alkaline Phosphatase (34-104) U/L Total Protein (6.4-8.9) g/dL Albumin (3.2-5.2) g/dL Globulin (2-4) g/dL Albumin/Globulin Ratio (1-3) Result Diagrams: 04/01/17 17:28 04/01/17 17:28 Lab Statement: Any lab studies that have been ordered have been reviewed, and results considered in the medical decision making process. - CT A/P CT Interpretation Completed By: Radiologist - 1. No renal calculi or signs of hydroureteronephrosis. 2. Questionable mild wall thickening involving the rectosigmoid colon which may simply be the consequence of underdistention. ED physician has reviewed this radiology report and agrees. - Additional Comments Diagnostic Additional Comments: Lumbar Spine MRI Pending official [facility] radiologist[facility] Complex Multi-Symp Course/Dx Assessment/Plan: This patient is a 56 year old M presenting to [facility] with a chief complaint of constant right-sided low back pain since 3 weeks ago. The patient rates the throbbing pain 9/10 in severity. Symptoms aggravated by coughing, deep breaths, and movement. Symptoms alleviated by nothing. Patient reports fever, chills, diaphoresis, urinary retention, and cough. Patient denies dysuria, hematuria, vomiting, and diarrhea. Heroin use. PMHx includes HTN and asthma. CT A/P reveals 1. No renal calculi or signs of hydroureteronephrosis. 2. Questionable mild wall thickening involving the rectosigmoid colon which may simply be the consequence of underdistention. ED physician has reviewed this radiology report and agrees. Lumbar spine MRI Pending official interpretation from radiologist. See [facility]. Patient is signed out to Dr. Bender, pending disposition, awaiting MRI. We recommend that if the MRI is negative for epidural abscess that the patient be discharged with PCP follow up. - Diagnoses Provider Diagnoses: Low back pain Discharge - Discharge Plan Condition: Stable Disposition: HOME Prescriptions: oxyCODONE/Acetamin 5/325 MG* [Percocet 5/325 TAB*] 1 tab PO Q6H PRN #16 tab MDD 4 PRN Reason: Pain Patient Education Materials: Low Back Strain (ED) Referrals: Yony Barry [facility] [Primary Care Provider] - (KEEP YOUR APPOINTMENT ON WEDNESDAY) The documentation as recorded by the Milana angelo Alfonso accurately reflects the service I personally performed and the decisions made by me, Austin Talavera MD.
== END 2017-04-01 23:10 | disposition home or self-care (01) ==
LOC: ED 15:03
DX: M54.5 Low back pain (principal); R50.9 Fever, unspecified; R33.9 Retention of urine, unspecified; F17.210 Nicotine dependence, cigarettes, uncomplicated
CPT/HCPCS: 36415; 72158; 74176; 80053; 81003; 83605; 85025; 85610; 85730; 87040; 96374; 96376; 99284; A9270-GY; A9579; J1170

== ENCOUNTER 2017-04-28 10:14 | Emergency (ER) | payer OTHER ==
[2017-04-28 10:34] VITALS: BP 132/84
--- NOTE | 2017-04-28 16:33 | ED ---
Back Pain - HPI Summary HPI Summary: Patient presents with chronic back pain. He states he has been having back pain for years with flare ups. Today he states a 10/10 pain. He is an opioid addict and is currently on Buprenorphrine patch. He has tried muscle relaxers without relief, but currently does not have any at home. He has not tried to take ibuprofen. Denies placing heat to the area. He denies recent injury. To myself he denies weakness, but states he has a tough time getting out of bed in the morning. Denies B/B dysfunction, but states he is urinating more frequently now, but states he can only go small amounts at a time. - History of Current Complaint Chief Complaint: UCBackPain Stated Complaint: BACK PAIN Time Seen by Provider: 04/28/17 10:52 Hx Obtained From: Patient Onset/Duration: Sudden Onset Onset/Duration: Atraumatic Timing: Constant Back Pain Location: Is Discrete @ - low back Severity Initially: Severe Severity Currently: Severe Pain Intensity: 9 Pain Scale Used: 0-10 Numeric Character: Aching Associated Signs And Symptoms: Positive: Other - urinating more frequently - Risk Factors AAA Risk Factors: Negative TAD Risk Factors: Negative Cauda Equina Risk Factors: Bladder Dysfunction - urinating more frequently with weakened stream Epidural Abscess Risk Factors: Negative - Allergies/Home Medications Allergies/Adverse Reactions: Allergies Allergy/AdvReac Type Severity Reaction Status Date / Time Iodinated Diagnostic Agents AdvReac Vomiting Verified 08/23/16 15:47 CT Contrast AdvReac Intermediate Vomiting Uncoded 08/23/16 15:47 Home Medications: Home Medications fentaNYL PATCH 25 MCG/HR* [Duragesic PATCH 25 Mcg/Hr*] 25 mcg TRANSDERM Q72H [History Confirmed 04/28/17] PMH/Surg Hx/FS Hx/Imm Hx Previously Healthy: Yes Endocrine/Hematology History: Reports: Hx Unexplained Bleeding - rectally Denies: Hx Anticoagulant Therapy, Hx Diabetes, Hx Thyroid Disease Cardiovascular History: Reports: Hx Hypertension - NO MEDS, Other Cardiovascular Problems/Disorders - HYPERTENSION Denies: Hx Congestive Heart Failure, Hx Pacemaker/ICD Respiratory History: Reports: Hx Asthma, Other Respiratory Problems/Disorders - R PNEUMONTHORAX PER PT Comment Only: Hx Chronic Obstructive Pulmonary Disease (COPD) - ? COPD GI History: Reports: Hx Hiatal Hernia - HX OF- HAD SURGERY, Other GI Disorders - right pneumothorax 2011 Denies: Hx Ulcer History: Denies: Hx Dialysis, Hx Renal Disease Musculoskeletal History: Reports: Other Musculoskeletal History - multiple rib fx from [place] falling on pt Sensory History: Denies: Hx Contacts or Glasses, Hx Hearing Aid Opthamlomology History: Denies: Hx Contacts or Glasses Neurological History: Reports: Other Neuro Impairments/Disorders - depression Denies: Hx Dementia, Hx Seizures Psychiatric History: Reports: Hx Depression Denies: Hx Panic Disorder, Hx Substance Abuse - Surgical History Surgery Procedure, Year, and Place: hiatal hernia repair 2007, [place], Hx Anesthesia Reactions: No - Immunization History Date of Tetanus Vaccine: unknown Date of Influenza Vaccine: unknown Hx Pertussis Vaccination: No Immunizations Up to Date: Unable to Obtain/Confirm Infectious Disease History: No Infectious Disease History: Denies: Hx Hepatitis, Hx Human Immunodeficiency Virus (HIV), 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, Traveled Outside the [place] in Last 30 Days - Family History Known Family History: Positive: Unknown Negative: Cardiac Disease, Hypertension, Diabetes - Social History Occupation: Employed Full-time Lives: With Family Alcohol Use: None Hx Substance Use: Yes Substance Use Type: Reports: Heroin Substance Use Comment - Amount & Last Used: last used 6 month Hx Tobacco Use: No Smoking Status (MU): Light Every Day Tobacco Smoker Type: Cigarettes Review of Systems Constitutional: Negative Negative: Fever, Chills, Fatigue Cardiovascular: Negative Respiratory: Negative Positive: see HPI, frequency Positive: Arthralgia - back pain Skin: Negative Neurological: Negative Psychological: Normal All Other Systems Reviewed And Are Negative: Yes Physical Exam Triage Information Reviewed: Yes Vital Signs On Initial Exam: Initial Vitals Temp Pulse Resp BP Pulse Ox 98.1 F 85 18 132/84 99 04/28/17 10:25 04/28/17 10:25 04/28/17 10:25 04/28/17 10:25 04/28/17 10:25 Vital Signs Reviewed: Yes Appearance: Positive: Well-Appearing, Well-Nourished Skin: Positive: Warm, Skin Color Reflects Adequate Perfusion Head/Face: Positive: Normal Head/Face Inspection Eyes: Positive: EOMI, REFUGIO, Conjunctiva Clear Neck: Positive: Supple, No Lymphadenopathy Respiratory/Lung Sounds: Positive: Clear to Auscultation, Breath Sounds Present Musculoskeletal: Positive: Pain @ - mid lower back with radiation to both flanks and down bilateral legs Psychiatric: Positive: Normal AVPU Assessment: Alert Diagnostics - Vital Signs Vital Signs Temp Pulse Resp BP Pulse Ox 04/28/17 10:25 98.1 F 85 18 132/84 99 - Laboratory Lab Results: Lab Results 04/28/17 Range/Units 10:34 POC Urine Color Yellow POC Urine Clarity Clear POC Urine pH 5.5 (5-9) POC Ur Specif [place] 1.020 (1.010-1.030) POC Urine Protein Negative (Negative) POC Ur Glucose (UA) Negative (Negative) POC Urine Ketones Negative (Negative) POC Urine Blood Negative (Negative) POC Urine Nitrite Negative (Negative) POC Urine Bilirubin Negative (Negative) POC Urine Urobilinogen 1.0 (Negative) POC U Leukocyte Esteras Negative (Negative) Lab Statement: Any lab studies that have been ordered have been reviewed, and results considered in the medical decision making process. Back Pain Course/Dx - Course Course Of Treatment: D/t bupenorphrine patch and opioid addict, he is not given opioids. He recently received a new patch 1 day ago. He states he is unable to deal with the pain. Provider stated they would be willing to provide NSAIDS and muscle relaxers with a referral to the neurosurgeon. He is seeing Yony Barry, but has not been rx pain medication. Explained to patient: I believe he has pain, but am limited to what I am able to prescribed d/t his history. He has been in and out of the ED x 4 in the last 4 months for back pain. Also, he has been prescribed opioids during these visits. Heroin overdose in November this year. Again, explained I would not be prescribing him opioids. He states he can take something that started with a "D" which they gave him in the ED, but couldn't remember the name. I have discussed with the patient the need for follow up and how it is unlikely he will receive opiods d/t his history but other medications, conservative treatment options are available. He is OK with discharge. - Diagnoses Differential Diagnosis/HQI/PQRI: Positive: Arthritis, Herniated Disc, Osteoporosis, Strain, Sprain Provider Diagnoses: Acute exacerbation of chronic low back pain Discharge - Discharge Plan Condition: Stable Disposition: HOME Prescriptions: Cyclobenzaprine TAB* [Flexeril 10 MG TAB*] 10 mg PO TID PRN #30 tab MDD 3 PRN Reason: Pain Meloxicam(NF) [Mobic(NF)] 15 mg PO DAILY #30 tab Patient Education Materials: Chronic Back Pain (ED), Lower Back Exercises (ED) Referrals: Morris De Leon MD [Medical Doctor] - Yony Barry NP [Primary Care Provider] - Additional Instructions: Dx. Back pain Flexeril: This medication is a muscle relaxant and can help relieve muscle spasms, muscle strain, or pain sensations. Flexeril can cause side effects that may impair your thinking or reactions. Be careful if you drive or do anything that requires you to be awake and alert. Avoid drinking alcohol, which can increase some of the side effects of Flexeril. Mobic 15mg once daily with meals for discomfort. Return to ED if symptoms worsen or fail to improve, notice worsening swelling, warmth or redness around the joint, develop fever, or pain is uncontrolled with OTC medications. Moist heat to the area for comfort. Warm showers or baths may improve symptoms. It is important to remain mobile as tolerated to prevent stiffening of the joints and delay healing. Follow up with your PCP. If symptoms remain for > 6 weeks, please seek special medical attention from an orthopedic physician.
== END 2017-04-28 11:22 | disposition home or self-care (01) ==
LOC: UCEAST 10:14
DX: G89.29 Other chronic pain (principal); M54.5 Low back pain; R35.0 Frequency of micturition; I10 Essential (primary) hypertension; J45.909 Unspecified asthma, uncomplicated; Z91.041 Radiographic dye allergy status; F11.90 Opioid use, unspecified, uncomplicated; F17.210 Nicotine dependence, cigarettes, uncomplicated
CPT/HCPCS: 81003; 99212; G0463

== ENCOUNTER 2018-09-15 12:36 | Emergency (ER) | payer OTHER ==
--- NOTE | 2018-09-15 15:08 | ED ---
Back Pain - HPI Summary HPI Summary: A 58 y/o M presents to ED with c/o constant, ongoing back pain on R-side back pain for the past week. The pain radiates down the back of his leg. Associated sx: diaphoretic, dysuria, RLE tingling. Pt denies any fever, chills, erythema of eyes, sore throat, CP, SOB, cough, abdominal pain, N/V, hematuria, edema, rash, or dizziness. Aggravating factors: twisting, movement. PMHx: [place] [facility] [place] Taking Motrin at home for the pain but to no relief. - History of Current Complaint Chief Complaint: EDFlankPain Stated Complaint: "LOWER BACK PAIN OR KIDNEY THING" PER PT Time Seen by Provider: 09/15/18 14:56 Hx Obtained From: Patient Onset/Duration: Lasting Weeks, Still Present Onset/Duration: Still Present Timing: Constant Back Pain Location: Is Diffuse - R-side of back, Radiates To - RLE Severity Initially: Moderate Severity Currently: Moderate Pain Intensity: 5 Pain Scale Used: 0-10 Numeric Aggravating Symptom(s): Movement Associated Signs And Symptoms: Positive: Tingling - RLE, Other - pos: diaphoretic, dysuria.. Negative: Fever, Abdominal Pain - Allergies/Home Medications Allergies/Adverse Reactions: Allergies Allergy/AdvReac Type Severity Reaction Status Date / Time CT Contrast AdvReac Intermediate Vomiting Uncoded 09/15/18 12:43 PMH/Surg Hx/FS Hx/Imm Hx Previously Healthy: No Endocrine/Hematology History: Reports: Hx Unexplained Bleeding - rectally Denies: Hx Anticoagulant Therapy, Hx Diabetes, Hx Thyroid Disease Cardiovascular History: Reports: Hx Hypertension - NO MEDS, Other Cardiovascular Problems/Disorders - HYPERTENSION Denies: Hx Congestive Heart Failure, Hx Pacemaker/ICD Respiratory History: Reports: Hx Asthma, Other Respiratory Problems/Disorders - R PNEUMONTHORAX PER PT Comment Only: Hx Chronic Obstructive Pulmonary Disease (COPD) - ? COPD GI History: Reports: Hx Hiatal Hernia - HX OF- HAD SURGERY, Other GI Disorders - right pneumothorax 2011 Denies: Hx Ulcer History: Denies: Hx Dialysis, Hx Renal Disease Musculoskeletal History: Reports: Other Musculoskeletal History - multiple rib fx from tombstone falling on pt Sensory History: Denies: Hx Contacts or Glasses, Hx Hearing Aid Opthamlomology History: Denies: Hx Contacts or Glasses Neurological History: Reports: Other Neuro Impairments/Disorders - depression Denies: Hx Dementia, Hx Seizures Psychiatric History: Reports: Hx Depression Denies: Hx Panic Disorder, Hx Substance Abuse - Surgical History Surgery Procedure, Year, and Place: hiatal hernia repair 2007, [facility], Hx Anesthesia Reactions: No - Immunization History Date of Tetanus Vaccine: unknown Date of Influenza Vaccine: unknown Infectious Disease History: No Infectious Disease History: Denies: Hx Hepatitis, Hx Human Immunodeficiency Virus (HIV), 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, Traveled Outside the [place] in Last 30 Days - Family History Known Family History: Negative: Cardiac Disease, Hypertension, Diabetes - Social History Occupation: Unemployed Lives: Dormitory/Roommates Alcohol Use: None Hx Substance Use: Yes Substance Use Type: Reports: Heroin Substance Use Comment - Amount & Last Used: last used 6 month Hx Tobacco Use: No Smoking Status (MU): Light Every Day Tobacco Smoker Type: Cigarettes Review of Systems Positive: Skin Diaphoresis. Negative: Fever, Chills Negative: Erythema Negative: Sore Throat Negative: Chest Pain Negative: Shortness Of Breath, Cough Negative: Abdominal Pain, Vomiting, Nausea Positive: dysuria. Negative: hematuria Musculoskeletal: Other - pos: back pain radiating to RLE Negative: Rash Neurological: Other - pos: RLE tingling. neg: dizziness All Other Systems Reviewed And Are Negative: Yes Physical Exam - Summary Physical Exam Summary: Constitutional: Well-developed, Well-nourished, Alert. (-) Distressed Skin: Warm, Dry HENT: Normocephalic; Atraumatic Eyes: Conjunctiva normal Neck: Musculoskeletal ROM normal neck. (-) JVD, (-) Stridor, (-) Tracheal deviation Cardio: Rhythm regular, rate normal, Heart sounds normal; Intact distal pulses; The pedal pulses are 2+ and symmetric. Radial pulses are 2+ and symmetric. (-) Murmur Pulmonary/Chest wall: Effort normal. (-) Respiratory distress, (-) Wheezes, (-) Rales Abd: Soft, (-) epigastric tenderness, (-) Distension, (-) Guarding, (-) Rebound. R CVA tenderness. Musculoskeletal: (-) Edema Lymph: (-) Cervical adenopathy Neuro: Alert, Oriented x3 Psych: Mood and affect Normal Triage Information Reviewed: Yes Vital Signs On Initial Exam: Initial Vitals Temp Pulse Resp BP Pulse Ox 97.4 F 78 19 164/99 96 09/15/18 12:40 09/15/18 12:40 09/15/18 12:40 09/15/18 12:40 09/15/18 12:40 Vital Signs Reviewed: Yes Diagnostics - Vital Signs Vital Signs Temp Pulse Resp BP Pulse Ox 09/15/18 14:37 97.5 F 81 17 159/74 97 09/15/18 12:40 97.4 F 78 19 164/99 96 - Laboratory Result Diagrams: 09/15/18 15:37 09/15/18 15:37 Lab Statement: Any lab studies that have been ordered have been reviewed, and results considered in the medical decision making process. - Radiology CXR Radiology Interpretation Completed By: Radiologist Summary of Radiographic Findings: IMPRESSION: No active cardiopulmonary disease is noted. ED provider has reviewed this report. - CT A/P CT CT Interpretation Completed By: Radiologist Summary of CT Findings: IMPRESSION: No evidence of obstructive uropathy is noted. Normal appendix is noted. Degenerative disc disease at L2-L3. No changes noted since March 31, 2017. ED provider has reviewed this report. Back Pain Course/Dx - Course Course Of Treatment: A 58 y/o M presents with constant, ongoing back pain on R for the past week. The pain radiates down the back of his leg. Associated sx: diaphoretic, dysuria, RLE tingling. Pt denies any fever, chills, erythema of eyes, sore throat, CP, SOB, cough, abdominal pain, N/V, hematuria, edema, rash, or dizziness. PMHx: [place] [facility] [place] UA and CT are negative. I suspect sciatica due to spinal pathology. Pt is ambulatory. No signs of cauda euina syndrome. Recommend F/U with [facility], and Dr. Mcdaniel in 2-3 days. Discharge - Sign-Out/Discharge Documenting (check all that apply): Patient Departure - D/C Patient Received Moderate/Deep Sedation with Procedure: No - Discharge Plan Condition: Stable Disposition: HOME Prescriptions: Lidocaine PATCH 5%* [Lidoderm 5% Patch*] 1 patch TRANSDERM DAILY #20 patch predniSONE TAB* [Deltasone TAB*] 50 mg PO DAILY #4 tab traMADol TAB* [Ultram*] 50 mg PO Q6HR PRN #15 tab MDD 4 PRN Reason: Pain - Severe Patient Education Materials: Prednisone (By mouth), Lidocaine (On the skin), Tramadol (By mouth), Sciatica (ED) Forms: *Work Release Referrals: Demetria Mcdaniel MD [Medical Doctor] - [facility] [Outside] Additional Instructions: Follow up with Dr Mcdaniel in 2-3 days. Return to the emergency department for changing or worsening symptoms. - Attestation Statements Document Initiated by Scribe: Yes Documenting Scribe: Alicia Flores Provider For Whom Scribe is Documenting (Include Credential): Dr. Austin Talavera MD Scribe Attestation: I, Alicia Flores, scribed for Dr. Austin Talavera MD on 09/15/18 at 1633. Status of Scribe Document: Ready
[2018-09-15] MEDS ORDERED: traMADol TAB* 50 MG PO ONE (15:09)
[2018-09-15 15:27] LABS: Urine Appearance Cloudy; Urine Bilirubin Negative (Negative); Urine Blood Negative (Negative); Urine Color Yellow; Urine Glucose Negative (Negative); Urine Ketones Negative (Negative); Urine Nitrite Negative (Negative); Urine Protein Negative (Negative); Urine Urobilinogen Negative (Negative)
[2018-09-15 16:05] LABS: INR 0.92 (0.77-1.02)
[2018-09-15 16:07] LABS: ABS Basophils 0.1 10^3/ul (0-0.2); ABS Lymphocytes 1.7 10^3/ul (1.0-4.8); ABS Monocytes 0.6 10^3/ul (0-0.8); ABS Neutrophils 4.4 10^3/ul (1.5-7.7); ABS Nucleated RBC 0 10^3/ul; Eosinophil % 12.7 %; Hematocrit 42 % (42-52); Hemoglobin 14.2 g/dl (14.0-18.0); Lymphocyte % 21.6 %; Mean Corpuscular HGB Conc 34 g/dl (31-36); Mean Corpuscular Hemoglobin 30 pg (27-31); Mean Corpuscular Volume 89 fL (80-94); Mean Platelet Volume 7.4 fL (7.4-10.4); Nucleated Red Blood Cells % 0; Platelet Count 222 10^3/ul (150-450); Red Blood Count 4.69 10^6/ul (4.00-5.40); Red Cell Distribution Width 14 % (10.5-15); White Blood Count 7.8 10^3/ul (3.5-10.8)
[2018-09-15 16:11] LABS: Albumin 4.2 g/dL (3.2-5.2); Albumin/Globulin Ratio 1.4 (1-3); BUN/Creatinine Ratio 19.5 (8-20); Calcium 8.9 mg/dL (8.6-10.3); EGFR African American 117.6 (>60); EGFR Non-African American 97.2 (>60); Potassium 3.8 mmol/L (3.5-5.0); Total Bilirubin 0.3 mg/dL (0.2-1.0); Total Protein 7.2 g/dL (6.4-8.9)
[2018-09-15 16:46] VITALS: BP 145/88
== END 2018-09-15 16:30 | disposition home or self-care (01) ==
LOC: ED 12:36
DX: M54.41 Lumbago with sciatica, right side (principal); M51.36 Other intervertebral disc degeneration, lumbar region; R61 Generalized hyperhidrosis; R30.0 Dysuria; R20.2 Paresthesia of skin; Z87.442 Personal history of urinary calculi; Z91.041 Radiographic dye allergy status; F17.210 Nicotine dependence, cigarettes, uncomplicated
CPT/HCPCS: 36415; 71045; 74176; 80053; 81003; 83605; 84484; 85025; 85610; 85730; 87040; 99281

== ENCOUNTER 2019-04-02 09:22 | Emergency (ER) | payer OTHER ==
[2019-04-02] MEDS ORDERED: NS 0.9% 1000 ML** 1,000 ML IV ONE (09:37)
[2019-04-02] MEDS ORDERED: Ondansetron INJ* 2 MG/ML VIAL IV ONE (09:37)
[2019-04-02 10:01] LABS: ABS Basophils 0.1 10^3/ul (0-0.2); ABS Eosinophils 0.3 10^3/ul (0-0.6); ABS Lymphocytes 1.3 10^3/ul (1.0-4.8); ABS Monocytes 0.5 10^3/ul (0-0.8); ABS Neutrophils 6.7 10^3/ul (1.5-7.7); Hematocrit 42 % (42-52); Lymphocyte % 14.4 %; Mean Corpuscular HGB Conc 34 g/dL (31-36); Mean Corpuscular Hemoglobin 30 pg (27-31); Mean Corpuscular Volume 89 fL (80-94); Mean Platelet Volume 7.5 fL (7.4-10.4); Platelet Count 225 10^3/uL (150-450); Red Blood Count 4.65 10^6 /uL (4.18-5.48); Red Cell Distribution Width 15 % (10-15); White Blood Count 8.9 10^3/uL (3.5-10.8)
--- NOTE | 2019-04-02 10:15 | ED ---
Substance Abuse/Use - HPI Summary HPI Summary: Patient is a 58-year-old male who presents emergency department via EMS for likely opioid overdose. Patient reportedly received a few doses of intranasal Narcan by his friend this morning. Patient arrives to the ER awake and alert and oriented 3. Patient states he does not use heroin on a regular basis but has overdosed in the past. He denies any other substance use today and denies alcohol use. He otherwise denies past medical history. Currently denies chest pain, shortness of breath, abdominal pain, vomiting. Symptoms are moderate in severity. No current modifying factors. Patient states that heroin use today was recreational and he was not trying to hurt himself. - History Of Current Complaint Chief Complaint: EDOverdose Stated Complaint: OVERDOSE PER EMS Time Seen by Provider: 04/02/19 09:28 Hx Obtained From: Patient, EMS - Allergies/Home Medications Allergies/Adverse Reactions: Allergies Allergy/AdvReac Type Severity Reaction Status Date / Time CT Contrast AdvReac Intermediate Vomiting Uncoded 04/02/19 10:16 Home Medications: Home Medications NK [No Home Medications Reported] 04/02/19 [History Confirmed 04/02/19] PMH/Surg Hx/FS Hx/Imm Hx Previously Healthy: Yes Endocrine/Hematology History: Reports: Hx Unexplained Bleeding - rectally Denies: Hx Anticoagulant Therapy, Hx Diabetes, Hx Thyroid Disease Cardiovascular History: Reports: Hx Hypertension - NO MEDS, Other Cardiovascular Problems/Disorders - HYPERTENSION Denies: Hx Congestive Heart Failure, Hx Pacemaker/ICD Respiratory History: Reports: Hx Asthma, Other Respiratory Problems/Disorders - R PNEUMONTHORAX PER PT Comment Only: Hx Chronic Obstructive Pulmonary Disease (COPD) - ? COPD GI History: Reports: Hx Hiatal Hernia - HX OF- HAD SURGERY, Other GI Disorders - right pneumothorax 2011 Denies: Hx Ulcer History: Denies: Hx Dialysis, Hx Renal Disease Musculoskeletal History: Reports: Other Musculoskeletal History - multiple rib fx from tombstone falling on pt Sensory History: Denies: Hx Contacts or Glasses, Hx Hearing Aid Opthamlomology History: Denies: Hx Contacts or Glasses Neurological History: Reports: Other Neuro Impairments/Disorders - depression Denies: Hx Dementia, Hx Seizures Psychiatric History: Reports: Hx Depression Denies: Hx Panic Disorder, Hx Substance Abuse - Surgical History Surgery Procedure, Year, and Place: hiatal hernia repair 2007, [place], Hx Anesthesia Reactions: No - Immunization History Date of Tetanus Vaccine: unknown Date of Influenza Vaccine: unknown Infectious Disease History: No Infectious Disease History: Denies: Hx Hepatitis, Hx Human Immunodeficiency Virus (HIV), 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, Traveled Outside the [place] in Last 30 Days - Family History Known Family History: Positive: Unknown Negative: Cardiac Disease, Hypertension, Diabetes - Social History Occupation: Unemployed Lives: Alone Alcohol Use: None Hx Substance Use: Yes Substance Use Type: Reports: Heroin Substance Use Comment - Amount & Last Used: last used 6 month Hx Tobacco Use: No Smoking Status (MU): Light Every Day Tobacco Smoker Type: Cigarettes Review of Systems Constitutional: Negative Cardiovascular: Negative Negative: Palpitations, Chest Pain Respiratory: Negative Negative: Shortness Of Breath, Cough Gastrointestinal: Negative Positive: Other - pain to left side of face and neck. Neurological: Negative All Other Systems Reviewed And Are Negative: Yes Physical Exam Triage Information Reviewed: Yes Vital Signs On Initial Exam: Initial Vitals Temp Pulse Resp BP Pulse Ox 97.3 F 78 16 161/89 95 04/02/19 09:31 04/02/19 09:31 04/02/19 09:31 04/02/19 09:31 04/02/19 09:31 Vital Signs Reviewed: Yes Appearance: Positive: Well-Appearing - Pt. sitting up in bed in NAD. Awake and alert. Answers questions appropriately. Skin: Positive: Warm, Dry Head/Face: Positive: Other - Superficial abrasions to left cheek. Pain and ecchymosis over left temporal region. Eyes: Positive: Normal, EOMI Neck: Positive: Supple, Other: - diffuse tenderness. Respiratory/Lung Sounds: Positive: Clear to Auscultation, Breath Sounds Present Cardiovascular: Positive: Normal, RRR Abdomen Description: Positive: Nontender, Soft Musculoskeletal: Positive: Normal, Strength/ROM Intact Neurological: Positive: Normal, CN Intact II-III Psychiatric: Positive: Affect/Mood Appropriate Diagnostics - Vital Signs Vital Signs Temp Pulse Resp BP Pulse Ox 04/02/19 09:31 97.3 F 78 16 161/89 95 - Laboratory Lab Results: Lab Results 04/02/19 Range/Units 09:55 WBC 8.9 (3.5-10.8) 10^3/uL RBC 4.65 (4.18-5.48) 10^6 /uL Hgb 14.0 (14.0-18.0) g/dL Hct 42 (42-52) % MCV 89 (80-94) fL MCH 30 (27-31) pg MCHC 34 (31-36) g/dL RDW 15 (10-15) % Plt Count 225 (150-450) 10^3/uL MPV 7.5 (7.4-10.4) fL Neut % (Auto) 75.8 % Lymph % (Auto) 14.4 % [place] % (Auto) 6.2 % Eos % (Auto) 3.0 % Baso % (Auto) 0.6 % Absolute Neuts (auto) 6.7 (1.5-7.7) 10^3/ul Absolute Lymphs (auto) 1.3 (1.0-4.8) 10^3/ul Absolute Monos (auto) 0.5 (0-0.8) 10^3/ul Absolute Eos (auto) 0.3 (0-0.6) 10^3/ul Absolute Basos (auto) 0.1 (0-0.2) 10^3/ul Absolute Nucleated RBC 0.0 10^3/ul Nucleated RBC % 0.0 Result Diagrams: 04/02/19 09:55 04/02/19 09:55 Lab Statement: Any lab studies that have been ordered have been reviewed, and results considered in the medical decision making process. Course/Dx - Course Course Of Treatment: Patient presenting for postoperative narcotic overdose that responded to Narcan. He is awake, alert and protecting his airway. Vital signs are stable. Patient given a dose of IV fluids and Zofran for his nausea. ECG done at 0940 shows a sinus rhythm of 76bpm, normal axis, no ST elevation or depression. Labs are unremarkable. Chest x-ray negative for acute findings. On reexamination patient is noted that the left side of his face and head hurt and he does have a few contusions and abrasions. Patient also complaining of neck pain. CT scan was ordered and for negative for acute findings. Patient understood Tylenol for pain. Patient states that he does have a history of depression used to see a psychiatrist. Patient agreeable for mental health evaluation. Patient seen by a counselor and provided with outpatient resources. He is already patient reach and will follow up with them tomorrow. Patient to return to the ER symptoms change or worsen. Advised to avoid alcohol and drug use. Patient understands and agrees with plan. - Diagnoses Differential Diagnosis/HQI/PQRI: Positive: Depression, Drug Abuse Provider Diagnoses: Drug overdose, Facial contusion, Cervical strain Discharge ED - Sign-Out/Discharge Documenting (check all that apply): Patient Departure Patient Received Moderate/Deep Sedation with Procedure: No - Discharge Plan Condition: Improved Disposition: HOME Patient Education Materials: Cervical Strain (ED), Adult Overdose (ED), Facial Contusion (ED) Forms: *Work Release Referrals: [facility] [Outside] Additional Instructions: Please call the [facility] tomorrow for close follow up appointment Avoid drug and alcohol use Can take tylenol or motrin for pain as directed Ice intermittently Return to ER if symptoms change or worsen - Billing Disposition and Condition Condition: IMPROVED Disposition: Home
[2019-04-02 10:21] LABS: Albumin 4.1 g/dL (3.2-5.2); Albumin/Globulin Ratio 1.2 (1-3); BUN/Creatinine Ratio 19.8 (8-20); Calcium 9.1 mg/dL (8.6-10.3); Globulin 3.5 g/dL (2-4); Potassium 3.3 mmol/L (3.5-5.0); Total Bilirubin 0.5 mg/dL (0.2-1.0); Total Protein 7.6 g/dL (6.4-8.9)
[2019-04-02 10:23] LABS: Troponin I 0.01 ng/mL (<0.04)
[2019-04-02] MEDS ORDERED: Acetaminophen TAB* 325 MG PO ONE (11:18)
[2019-04-02 14:15] VITALS: BP 137/86
== END 2019-04-02 14:10 | disposition home or self-care (01) ==
LOC: ED 09:22
DX: T40.1X1A Poisoning by heroin, accidental (unintentional), initial encounter (principal); S00.81XA Abrasion of other part of head, initial encounter; S00.83XA Contusion of other part of head, initial encounter; S16.1XXA Strain of muscle, fascia and tendon at neck level, initial encounter; X58.XXXA Exposure to other specified factors, initial encounter; Y92.9 Unspecified place or not applicable; M47.812 Spondylosis without myelopathy or radiculopathy, cervical region; E34.8 Other specified endocrine disorders; R11.0 Nausea; I10 Essential (primary) hypertension; Z91.041 Radiographic dye allergy status; F17.210 Nicotine dependence, cigarettes, uncomplicated
CPT/HCPCS: 36415; 70450; 70486; 71045; 72125; 80053; 84484; 85025; 93005; 96361; 96374; 99285; A9270-GY; J2405

== ENCOUNTER 2019-04-06 12:14 | Emergency (ER) | payer OTHER ==
[2019-04-06] MEDS ORDERED: NS 0.9% 1000 ML** 1,000 ML IV ONE (12:59)
[2019-04-06] MEDS ORDERED: Ketorolac INJ* 30 MG/ML 1 ML VIAL IV ONE (13:13)
[2019-04-06 13:24] LABS: ABS Basophils 0.1 10^3/ul (0-0.2); ABS Eosinophils 0.2 10^3/ul (0-0.6); ABS Lymphocytes 1.7 10^3/ul (1.0-4.8); ABS Monocytes 0.7 10^3/ul (0-0.8); ABS Neutrophils 4.9 10^3/ul (1.5-7.7); Eosinophil % 2.6 %; Hematocrit 40 % (42-52); Hemoglobin 13.5 g/dL (14.0-18.0); Lymphocyte % 22.5 %; Mean Corpuscular HGB Conc 34 g/dL (31-36); Mean Corpuscular Hemoglobin 30 pg (27-31); Mean Corpuscular Volume 90 fL (80-94); Mean Platelet Volume 7.3 fL (7.4-10.4); Nucleated Red Blood Cells % 0.1; Platelet Count 229 10^3/uL (150-450); Red Blood Count 4.47 10^6 /uL (4.18-5.48); Red Cell Distribution Width 14 % (10-15); White Blood Count 7.5 10^3/uL (3.5-10.8)
[2019-04-06 13:29] LABS: INR 1.08 (0.82-1.09)
[2019-04-06 13:38] LABS: ALT 11 U/L (7-52); AST 11 U/L (13-39); Albumin 4.2 g/dL (3.2-5.2); Albumin/Globulin Ratio 1.3 (1-3); Alkaline Phosphatase 75 U/L (34-104); Anion Gap 5 mmol/L (2-11); BUN/Creatinine Ratio 13.3 (8-20); Blood Urea Nitrogen 12 mg/dL (6-24); CO2 Carbon Dioxide 27 mmol/L (22-32); Chloride 107 mmol/L (101-111); EGFR African American 105.6 (>60); EGFR Non-African American 87.3 (>60); Globulin 3.3 g/dL (2-4); Glucose 92 mg/dL (70-100); Magnesium 2.2 mg/dL (1.9-2.7); Potassium 4.1 mmol/L (3.5-5.0); Sodium 139 mmol/L (135-145); Total Protein 7.5 g/dL (6.4-8.9)
[2019-04-06 14:02] LABS: Acetaminophen < 15 mcg/mL; Alcohol < 10 mg/dL (<10); Salicylate < 2.50 mg/dL (<30)
[2019-04-06] MEDS ORDERED: Amoxicillin/Clavulanate TAB* 875 MG PO ONE (14:44)
[2019-04-06] MEDS ORDERED: Magnesium CITRATE* 300 ML BTL PO ONE (14:44)
[2019-04-06 15:00] VITALS: BP 163/99
--- NOTE | 2019-04-06 16:36 | ED ---
Complex/Multi-Sys Presentation - HPI Summary HPI Summary: This patient is a 58-year-old male with history of drug abuse and overdose presenting to the ED with feeling unwell. He states he was seen in the ED 5 days ago after an apparent overdose on heroin. Patient uses heroin intermittently, but not daily. He was revived with Narcan successfully 2. He was discharged that day. Since that time, he states he has been complaining of heaviness in his maxillary sinuses with a facial droop and slurred speech. He is also endorsing generalized weakness and fatigue. Endorsing inability to have a bowel movement 9 days and headaches. He was seen by his counselor today who sent him here for further evaluation. He denies any drug or alcohol use in the past 5 days. He denies any fevers, sweats, chills. Denies any rhinorrhea, cough, congestion, CP or SOB. Patient states he takes no medications and is generally otherwise healthy at baseline. - History Of Current Complaint Chief Complaint: EDGeneral Time Seen by Provider: 04/06/19 12:26 Hx Obtained From: Patient Onset/Duration: Sudden Onset Timing: Constant Severity Currently: Moderate Severity Initially: Moderate Associated Signs And Symptoms: Positive: Weakness. Negative: Confusion, Dizziness, Syncope, Headache, SOB, Chest Pain, Palpitations - Allergies/Home Medications Allergies/Adverse Reactions: Allergies Allergy/AdvReac Type Severity Reaction Status Date / Time CT Contrast AdvReac Intermediate Vomiting Uncoded 04/02/19 10:16 PMH/Surg Hx/FS Hx/Imm Hx Previously Healthy: Yes Endocrine/Hematology History: Reports: Hx Unexplained Bleeding - rectally Denies: Hx Anticoagulant Therapy, Hx Diabetes, Hx Thyroid Disease Cardiovascular History: Reports: Hx Hypertension - NO MEDS, Other Cardiovascular Problems/Disorders - HYPERTENSION Denies: Hx Congestive Heart Failure, Hx Pacemaker/ICD Respiratory History: Reports: Hx Asthma, Other Respiratory Problems/Disorders - R PNEUMONTHORAX PER PT Comment Only: Hx Chronic Obstructive Pulmonary Disease (COPD) - ? COPD GI History: Reports: Hx Hiatal Hernia - HX OF- HAD SURGERY, Other GI Disorders - right pneumothorax 2011 Denies: Hx Ulcer History: Denies: Hx Dialysis, Hx Renal Disease Musculoskeletal History: Reports: Other Musculoskeletal History - multiple rib fx from tombstone falling on pt Sensory History: Denies: Hx Contacts or Glasses, Hx Hearing Aid Opthamlomology History: Denies: Hx Contacts or Glasses Neurological History: Reports: Other Neuro Impairments/Disorders - depression Denies: Hx Dementia, Hx Seizures Psychiatric History: Reports: Hx Depression Denies: Hx Eating Disorder, Hx Panic Disorder, Hx of Violent Episodes Against Others, Hx Substance Abuse - Surgical History Surgery Procedure, Year, and Place: hiatal hernia repair 2007, [facility], Hx Anesthesia Reactions: No - Immunization History Date of Tetanus Vaccine: unknown Date of Influenza Vaccine: unknown Hx Pertussis Vaccination: No Immunizations Up to Date: Yes Infectious Disease History: No Infectious Disease History: Denies: Hx Hepatitis, Hx Human Immunodeficiency Virus (HIV), 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, Traveled Outside the [place] in Last 30 Days - Family History Known Family History: Positive: Unknown Negative: Cardiac Disease, Hypertension, Diabetes - Social History Occupation: Unemployed Lives: With Family Alcohol Use: None Hx Substance Use: Yes Substance Use Type: Reports: Heroin Substance Use Comment - Amount & Last Used: last used 6 month Hx Tobacco Use: Yes Smoking Status (MU): Light Every Day Tobacco Smoker Type: Cigarettes Review of Systems Positive: Fatigue. Negative: Fever, Chills, Skin Diaphoresis Negative: Blurred Vision, Diplopia, Drainage, Erythema Negative: Dental Pain, Sore Throat Negative: Palpitations, Chest Pain Negative: Shortness Of Breath, Cough Positive: Other - constipation. Negative: Abdominal Pain, Vomiting, Diarrhea, Nausea Genitourinary: Negative Positive: no symptoms reported, see HPI Negative: Arthralgia, Myalgia Negative: Rash, Bruising Positive: Weakness. Negative: Paresthesia, Numbness, Syncope Psychological: Normal All Other Systems Reviewed And Are Negative: Yes Physical Exam Triage Information Reviewed: Yes Vital Signs On Initial Exam: Initial Vitals Temp Pulse Resp BP Pulse Ox 98.6 F 71 20 158/110 97 04/06/19 12:19 04/06/19 12:19 04/06/19 12:19 04/06/19 12:19 04/06/19 12:19 Vital Signs Reviewed: Yes Appearance: Positive: Well-Appearing, Well-Nourished Skin: Positive: Warm, Skin Color Reflects Adequate Perfusion Head/Face: Positive: Normal Head/Face Inspection Eyes: Positive: EOMI, REFUGIO, Conjunctiva Clear Neck: Positive: Supple, No Lymphadenopathy Respiratory/Lung Sounds: Positive: Clear to Auscultation, Breath Sounds Present Cardiovascular: Positive: RRR, Pulses are Symmetrical in both Upper and Lower Extremities. Negative: Leg Edema Left, Leg Edema Right Abdomen Description: Positive: Nontender, Soft. Negative: CVA Tenderness (R), CVA Tenderness (L) Musculoskeletal: Positive: Normal, Strength/ROM Intact Neurological: Positive: Sensory/Motor Intact, Alert, Oriented to Person Place, Time, CN Intact II-III, Normal Gait, Finger to Nose, Facial Symmetry, Speech Normal. Negative: Slurred Speech, Pronator Drift Present Psychiatric: Positive: Normal, Affect/Mood Appropriate Diagnostics - Vital Signs Vital Signs Temp Pulse Resp BP Pulse Ox 04/06/19 14:59 98.7 F 61 16 163/99 100 04/06/19 14:00 58 98 04/06/19 13:17 62 141/81 97 04/06/19 13:01 65 98 04/06/19 13:00 58 162/103 97 04/06/19 12:30 69 159/98 95 04/06/19 12:29 63 99 04/06/19 12:19 98.6 F 71 20 158/110 97 - Laboratory Lab Results: Lab Results 04/06/19 04/06/19 04/06/19 Range/Units 13:13 13:13 13:13 WBC 7.5 (3.5-10.8) 10^3/uL RBC 4.47 (4.18-5.48) 10^6 /uL Hgb 13.5 L (14.0-18.0) g/dL Hct 40 L (42-52) % MCV 90 (80-94) fL MCH 30 (27-31) pg MCHC 34 (31-36) g/dL RDW 14 (10-15) % Plt Count 229 (150-450) 10^3/uL MPV 7.3 L (7.4-10.4) fL Neut % (Auto) 65.1 % Lymph % (Auto) 22.5 % Bullock % (Auto) 9.1 % Eos % (Auto) 2.6 % Baso % (Auto) 0.7 % Absolute Neuts (auto) 4.9 (1.5-7.7) 10^3/ul Absolute Lymphs (auto) 1.7 (1.0-4.8) 10^3/ul Absolute Monos (auto) 0.7 (0-0.8) 10^3/ul Absolute Eos (auto) 0.2 (0-0.6) 10^3/ul Absolute Basos (auto) 0.1 (0-0.2) 10^3/ul Absolute Nucleated RBC 0.0 10^3/ul Nucleated RBC % 0.1 INR (Anticoag Therapy) 1.08 (0.82-1.09) Sodium 139 (135-145) mmol/L Potassium 4.1 (3.5-5.0) mmol/L Chloride 107 (101-111) mmol/L Carbon Dioxide 27 (22-32) mmol/L Anion Gap 5 (2-11) mmol/L BUN 12 (6-24) mg/dL Creatinine 0.90 (0.67-1.17) mg/dL Est GFR ( Amer) 105.6 (>60) Est GFR (Non-Af Amer) 87.3 (>60) BUN/Creatinine Ratio 13.3 (8-20) Glucose 92 (70-100) mg/dL Lactic Acid (0.5-2.0) mmol/L Calcium 9.0 (8.6-10.3) mg/dL Magnesium 2.2 (1.9-2.7) mg/dL Total Bilirubin 0.30 (0.2-1.0) mg/dL AST 11 L (13-39) U/L ALT 11 (7-52) U/L Alkaline Phosphatase 75 (34-104) U/L Ammonia (16-53) mcmol/L Troponin I 0.00 (<0.04) ng/mL Total Protein 7.5 (6.4-8.9) g/dL Albumin 4.2 (3.2-5.2) g/dL Globulin 3.3 (2-4) g/dL Albumin/Globulin Ratio 1.3 (1-3) Salicylates < 2.50 (<30) mg/dL Acetaminophen < 15 mcg/mL Serum Alcohol < 10 (<10) mg/dL 04/06/19 04/06/19 Range/Units 13:13 13:13 WBC (3.5-10.8) 10^3/uL RBC (4.18-5.48) 10^6 /uL Hgb (14.0-18.0) g/dL Hct (42-52) % MCV (80-94) fL MCH (27-31) pg MCHC (31-36) g/dL RDW (10-15) % Plt Count (150-450) 10^3/uL MPV (7.4-10.4) fL Neut % (Auto) % Lymph % (Auto) % Bullock % (Auto) % Eos % (Auto) % Baso % (Auto) % Absolute Neuts (auto) (1.5-7.7) 10^3/ul Absolute Lymphs (auto) (1.0-4.8) 10^3/ul Absolute Monos (auto) (0-0.8) 10^3/ul Absolute Eos (auto) (0-0.6) 10^3/ul Absolute Basos (auto) (0-0.2) 10^3/ul Absolute Nucleated RBC 10^3/ul Nucleated RBC % INR (Anticoag Therapy) (0.82-1.09) Sodium (135-145) mmol/L Potassium (3.5-5.0) mmol/L Chloride (101-111) mmol/L Carbon Dioxide (22-32) mmol/L Anion Gap (2-11) mmol/L BUN (6-24) mg/dL Creatinine (0.67-1.17) mg/dL Est GFR ( Amer) (>60) Est GFR (Non-Af Amer) (>60) BUN/Creatinine Ratio (8-20) Glucose (70-100) mg/dL Lactic Acid 1.2 (0.5-2.0) mmol/L Calcium (8.6-10.3) mg/dL Magnesium (1.9-2.7) mg/dL Total Bilirubin (0.2-1.0) mg/dL AST (13-39) U/L ALT (7-52) U/L Alkaline Phosphatase (34-104) U/L Ammonia 33 (16-53) mcmol/L Troponin I (<0.04) ng/mL Total Protein (6.4-8.9) g/dL Albumin (3.2-5.2) g/dL Globulin (2-4) g/dL Albumin/Globulin Ratio (1-3) Salicylates (<30) mg/dL Acetaminophen mcg/mL Serum Alcohol (<10) mg/dL Result Diagrams: 04/06/19 13:13 04/06/19 13:13 Lab Statement: Any lab studies that have been ordered have been reviewed, and results considered in the medical decision making process. Complex Multi-Symp Course/Dx Course Of Treatment: On physical examination, patient is evaluated for feeling of heaviness in his bilateral sinuses as well as facial droop and slurred speech. He is also endorsing some constipation without abdominal pain, nausea or vomiting. On physical exam, patient appears somewhat fatigued, however nontoxic and nondiaphoretic. Vital signs are stable. He does not appear to have a facial droop and there is no weakness noted in the bilateral upper and lower extremities. He is alert and oriented 3. He has good strength throughout. Full neuro exam completed and is negative. Chest x-ray and abdominal x-ray obtained which shows only findings of stool in the right colon without obstruction. CT brain obtained which shows no acute findings except for possible sinusitis. On reexamination after Toradol was given, patient states he is feeling improved and would like to be discharged home. No gait abnormalities, finger to nose okay and other cerebellar evaluation WNL. He is discharged with constipation and sinusitis. He is given Augmentin as well as mag citrate in the ED. He ambulates well and is discharged in good condition. - Diagnoses Provider Diagnoses: Sinusitis, Constipation Discharge ED - Sign-Out/Discharge Documenting (check all that apply): Patient Departure Patient Received Moderate/Deep Sedation with Procedure: No - Discharge Plan Condition: Stable Disposition: HOME Prescriptions: Amoxicillin/Clavulanate TAB* [Augmentin TAB 875*] 875 mg PO BID #13 tab Patient Education Materials: Constipation (ED), Sinusitis (ED) Referrals: Demetria Mcdaniel MD [Primary Care Provider] - Additional Instructions: Please follow-up with Dr. Mcdaniel Augmentin twice daily 7 days for sinusitis Mag citrate, take half the bottle now and half the bottle if you do not have a bowel movement within the next 3 hours Senokot at bedtime for any furthering constipation like symptoms, this is over- the-counter - Billing Disposition and Condition Condition: STABLE Disposition: Home
== END 2019-04-06 14:59 | disposition home or self-care (01) ==
LOC: ED 12:14
DX: J32.9 Chronic sinusitis, unspecified (principal); K59.00 Constipation, unspecified; I10 Essential (primary) hypertension; F32.9 Major depressive disorder, single episode, unspecified; F17.210 Nicotine dependence, cigarettes, uncomplicated; F11.10 Opioid abuse, uncomplicated; Z91.041 Radiographic dye allergy status
CPT/HCPCS: 36415; 70450; 71046; 74018; 80053; 80320; 80329; 82140; 83605; 83735; 84484; 85025; 85610; 93005; 96361; 96374; 99283; A9270-GY; G0480; J1885

== ENCOUNTER 2019-04-14 11:34 | Emergency (ER) | payer OTHER ==
[2019-04-14] MEDS ORDERED: Ondansetron INJ* 2 MG/ML VIAL IV ONE (11:58)
[2019-04-14] MEDS ORDERED: NS 0.9% 1000 ML** 1,000 ML IV ONE (11:58)
[2019-04-14] MEDS ORDERED: Morphine 4 MG/ML VIAL (1 ml) 4 MG/ML VIAL IV ONE (11:58)
[2019-04-14] MEDS ORDERED: Dexamethasone IV* 4 MG/ML 1 ML (4 MG) IV SLOW PU ONE (12:04)
[2019-04-14] MEDS ORDERED: Albuterol/Ipratropium NEB.SOL* Albuterol 2.5 MG/Ipratropium 0.5 MG 3 ML INH ONE (12:04)
--- NOTE | 2019-04-14 12:11 | ED ---
Abdominal Pain/Male - HPI Summary HPI Summary: 58 year old male presents to the ER with complaints of constant and worsening LLQ pain for the last 3 days. Pain is rated 8/10 in severity. He has had no bowel movements for the past 3 days. Patient has accompanying shortness of breath, subjective fever, chills, , nausea, vomiting, coughing, and wheezing. He denies testicular pain, erythema of eyes, sore throat, CP, dysuria, hematuria , myalgia, edema, rash or dizziness. Patient overdosed on heroin a week ago. He states he injects heroin into his arms, not the abdomen. Patient takes Suboxone twice a day, but has stopped after yesterday because he states it makes him constipated. - History of Current Complaint Chief Complaint: EDShortnessOfBreath Stated Complaint: SOB,LUQ PAIN PER PT Time Seen by Provider: 04/14/19 11:48 Hx Obtained From: Patient Onset/Duration: Lasting Days, Still Present Timing: Constant Severity Initially: Mild Severity Currently: Severe Pain Intensity: 8 Pain Scale Used: 0-10 Numeric Location: Discrete At: LLQ Radiates: No Aggravating Factor(s): Nothing Alleviating Factor(s): Nothing Associated Signs And Symptoms: Positive: Fever, Cough, Constipation, Nausea, Vomiting, Other - Positive: SOB, chills, wheezing. Negative: testicular pain, erythema of eyes, sore throat, CP, SOB, dysuria, hematuria, myalgia, edema, rash , dizziness - Allergies/Home Medications Allergies/Adverse Reactions: Allergies Allergy/AdvReac Type Severity Reaction Status Date / Time No Known Allergies Allergy Verified 04/14/19 12:23 Home Medications: Home Medications Albuterol HFA INHALER* [Ventolin HFA Inhaler*] 2 puff INH .EVERY 1/2 HR PRN 10/28 [History Confirmed 04/14/19] PMH/Surg Hx/FS Hx/Imm Hx Endocrine/Hematology History: Reports: Hx Unexplained Bleeding - rectally Denies: Hx Anticoagulant Therapy, Hx Diabetes, Hx Thyroid Disease Cardiovascular History: Reports: Hx Hypertension - NO MEDS, Other Cardiovascular Problems/Disorders - HYPERTENSION Denies: Hx Congestive Heart Failure, Hx Pacemaker/ICD Respiratory History: Reports: Hx Asthma, Other Respiratory Problems/Disorders - R PNEUMONTHORAX PER PT Comment Only: Hx Chronic Obstructive Pulmonary Disease (COPD) - ? COPD GI History: Reports: Hx Hiatal Hernia - HX OF- HAD SURGERY, Other GI Disorders - right pneumothorax 2011 Denies: Hx Ulcer History: Denies: Hx Dialysis, Hx Renal Disease Musculoskeletal History: Reports: Other Musculoskeletal History - multiple rib fx from tombstone falling on pt Sensory History: Denies: Hx Contacts or Glasses, Hx Hearing Aid Opthamlomology History: Denies: Hx Contacts or Glasses Neurological History: Reports: Other Neuro Impairments/Disorders - depression Denies: Hx Dementia, Hx Seizures Psychiatric History: Reports: Hx Depression Denies: Hx Eating Disorder, Hx Panic Disorder, Hx of Violent Episodes Against Others, Hx Substance Abuse - Surgical History Surgical History: Yes Surgery Procedure, Year, and Place: hiatal hernia repair 2007, [place], Hx Anesthesia Reactions: No - Immunization History Date of Tetanus Vaccine: unknown Date of Influenza Vaccine: unknown Infectious Disease History: No Infectious Disease History: Denies: Hx Hepatitis, Hx Human Immunodeficiency Virus (HIV), 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, Traveled Outside the [place] in Last 30 Days - Family History Known Family History: Negative: Cardiac Disease, Hypertension, Diabetes - Social History Alcohol Use: None Hx Substance Use: Yes Substance Use Type: Reports: Heroin Substance Use Comment - Amount & Last Used: last used 6 month Hx Tobacco Use: Yes Smoking Status (MU): Light Every Day Tobacco Smoker Type: Cigarettes Review of Systems Positive: Fever, Chills Negative: Erythema Negative: Sore Throat Negative: Chest Pain Positive: Shortness Of Breath, Cough, Other - wheezing Positive: Abdominal Pain, Vomiting, Nausea, Other - Constipation Negative: dysuria, hematuria, pain - testicular Negative: Myalgia, Edema Negative: Rash Neurological: Negative - Negative - Dizziness All Other Systems Reviewed And Are Negative: Yes Physical Exam - Summary Physical Exam Summary: Constitutional: Well-developed, Well-nourished, Alert. (-) Distressed Skin: Warm, Dry HENT: Normocephalic; Atraumatic Eyes: Conjunctiva normal Neck: Musculoskeletal ROM normal neck. (-) JVD, (-) Stridor, (-) Tracheal deviation Cardio: Rhythm regular, rate normal, Heart sounds normal; Intact distal pulses; The pedal pulses are 2+ and symmetric. Radial pulses are 2+ and symmetric. (-) Murmur Pulmonary/Chest wall: Effort normal. (-) Respiratory distress, (-) Wheezes, (-) Rales Abd: Soft, (+) Mild LLQ tenderness, no erythema, (-) Distension, (-) Guarding, ( -) Rebound Musculoskeletal: (-) Edema Lymph: (-) Cervical adenopathy Neuro: Alert, Oriented x3 Psych: Mood and affect Normal Triage Information Reviewed: Yes Vital Signs On Initial Exam: Initial Vitals Temp Pulse Resp BP Pulse Ox 97.9 F 76 18 119/84 95 04/14/19 11:44 04/14/19 11:44 04/14/19 11:44 04/14/19 11:44 04/14/19 11:44 Vital Signs Reviewed: Yes Procedures - Sedation Patient Received Moderate/Deep Sedation with Procedure: No Diagnostics - Vital Signs Vital Signs Temp Pulse Resp BP Pulse Ox 04/14/19 11:44 97.9 F 76 18 119/84 95 - Laboratory Result Diagrams: 04/14/19 12:10 04/14/19 13:09 Lab Statement: Any lab studies that have been ordered have been reviewed, and results considered in the medical decision making process. - Radiology CXR Radiology Interpretation Completed By: Radiologist Summary of Radiographic Findings: CXR impression shows no active cardiopulmonary disease. An ED physician has reviewed this report. - CT AP CT CT Interpretation Completed By: Radiologist Summary of CT Findings: AP CT SHOWS MILD INFLAMMATORY CHANGE OF THE ANTERIOR ABDOMINAL WALL IN THE LEFT LOWER QUADRANT. CELLULITIS IS WITHIN THE DIFFERENTIAL. OTHERWISE, NO ACUTE CT PATHOLOGY OF THE VISUALIZED ABDOMEN OR PELVIS. An ED physician has reviewed this report. Abdominal Pain Male Course/Dx - Course Course Of Treatment: 58 year old male presents to the ER with complaints of constant and worsening LLQ pain for the last 3 days. Pain is rated 8/10 in severity. He has had no bowel movements for the past 3 days. Patient has accompanying shortness of breath, subjective fever, chills, , nausea, vomiting, coughing, and wheezing. He denies testicular pain, erythema of eyes, sore throat , CP, dysuria, hematuria, myalgia, edema, rash or dizziness. Patient overdosed on heroin a week ago. He states he injects heroin into his arms, not the abdomen. Patient takes Suboxone twice a day, but has stopped after yesterday because he states it makes him constipated. Physical exam shows mild LLQ tenderness, no erythema, no guarding or rebound tenderness. Labs reveal WBCs of 11.7, abs neuts of 8.7, chloride of 100, BUN/Creatinine of 21.2, and CRP of 30.53. In the ED course, the pt was administered fluids, Albuterol, Dexamethasone, mag citrate, Keflex, Bactrim, Zofran, and Morphine. CXR impression shows no active cardiopulmonary disease. AP CT SHOWS MILD INFLAMMATORY CHANGE OF THE ANTERIOR ABDOMINAL WALL IN THE LEFT LOWER QUADRANT. CELLULITIS IS WITHIN THE DIFFERENTIAL. OTHERWISE, NO ACUTE CT PATHOLOGY OF THE VISUALIZED ABDOMEN OR PELVIS. Follow up with [facility] in 1-2 days. Rx for Albuterol , Keflex, Lidoderm, mag citrate, Deltasone, and Bactrim. Patient understood and agreed to my plan for discharge. Diagnosis is abd cellulitis, constipation, and bronchitis. - Diagnoses Provider Diagnoses: Abdominal wall cellulitis, Constipation, Bronchitis Is Visit Related: No Discharge ED - Sign-Out/Discharge Documenting (check all that apply): Patient Departure - Discharge - Discharge Plan Condition: Stable Disposition: HOME Prescriptions: Albuterol HFA INHALER* [Ventolin HFA Inhaler*] 2 puff INH Q6H PRN #1 mdi PRN Reason: Cough Cephalexin CAP* [Keflex CAP*] 500 mg PO QID #10 cap Lidocaine PATCH 5%* [Lidoderm 5% Patch*] 1 patch TRANSDERM DAILY #15 patch Magnesium CITRATE* [Citrate of Magnesia*] 300 ml PO ONCE #1 btl predniSONE TAB* [Deltasone TAB*] 50 mg PO DAILY #4 tab Sulfamethox/Trimethoprim DS* [Bactrim DS 800/160 TAB*] 1 tab PO BID #10 tab Patient Education Materials: Constipation (ED), Cellulitis (ED), Acute Bronchitis (ED) Referrals: Demetria Mcdaniel MD [Primary Care Provider] - [facility],. [Z.BUSINESS, APPLICATION, OTHER] - 3 Days Additional Instructions: Follow up with [facility] in 1-2 days. RETURN TO THE EMERGENCY DEPARTMENT FOR CHANGING OR WORSENING SYMPTOMS - Billing Disposition and Condition Condition: STABLE Disposition: Home - Attestation Statements Document Initiated by Scribe: Yes Documenting Scribe: Marc Ames Provider For Whom Scribe is Documenting (Include Credential): Austin Talavera MD. Scribe Attestation: I, Marc Ames, scribed for Austin Talavera MD. on 04/25/19 at 2135. Scribe Documentation Reviewed: Yes Provider Attestation: The documentation as recorded by the scribe, Marc Ames accurately reflects the service I personally performed and the decisions made by me, Austin Talavera MD. Status of Scribe Document: Viewed
[2019-04-14 12:33] LABS: ABS Basophils 0.1 10^3/ul (0-0.2); ABS Eosinophils 0.3 10^3/ul (0-0.6); ABS Lymphocytes 1.8 10^3/ul (1.0-4.8); ABS Monocytes 0.8 10^3/ul (0-0.8); ABS Neutrophils 8.7 10^3/ul (1.5-7.7); Eosinophil % 2.7 %; Hematocrit 44 % (42-52); Hemoglobin 14.9 g/dL (14.0-18.0); Mean Corpuscular HGB Conc 34 g/dL (31-36); Mean Corpuscular Hemoglobin 30 pg (27-31); Mean Corpuscular Volume 89 fL (80-94); Mean Platelet Volume 7.7 fL (7.4-10.4); Nucleated Red Blood Cells % 0.1; Platelet Count 249 10^3/uL (150-450); Red Blood Count 4.91 10^6 /uL (4.18-5.48); Red Cell Distribution Width 14 % (10-15); White Blood Count 11.7 10^3/uL (3.5-10.8)
[2019-04-14 12:51] LABS: ALT 11 U/L (7-52); Albumin 4.5 g/dL (3.2-5.2); Albumin/Globulin Ratio 1.2 (1-3); Alkaline Phosphatase 90 U/L (34-104); BUN/Creatinine Ratio 21.2 (8-20); Blood Urea Nitrogen 21 mg/dL (6-24); C Reactive Protein 30.53 mg/L (<8.01); CO2 Carbon Dioxide 24 mmol/L (22-32); Calcium 9.5 mg/dL (8.6-10.3); Chloride 100 mmol/L (101-111); EGFR African American 94.6 (>60); EGFR Non-African American 78.2 (>60); Globulin 3.9 g/dL (2-4); Glucose 88 mg/dL (70-100); Sodium 135 mmol/L (135-145); Total Protein 8.4 g/dL (6.4-8.9)
[2019-04-14 12:52] LABS: Anion Gap 11 mmol/L (2-11)
[2019-04-14] MEDS ORDERED: Iohexol 300* (CONTRAST) 10 ML SDV IV ONE (14:06)
[2019-04-14 14:26] LABS: Potassium Redraw 4.1 mmol/L (3.5-5.0)
[2019-04-14] MEDS ORDERED: Magnesium CITRATE* 300 ML BTL PO ONE (14:57)
[2019-04-14] MEDS ORDERED: Sulfamethox/Trimethoprim DS 800/160* TAB PO ONE (14:58)
[2019-04-14] MEDS ORDERED: Cephalexin CAP* 500 MG PO ONE (14:58)
[2019-04-14 15:29] VITALS: BP 127/98
== END 2019-04-14 15:25 | disposition home or self-care (01) ==
LOC: ED 11:34
DX: L03.311 Cellulitis of abdominal wall (principal); J40 Bronchitis, not specified as acute or chronic; K59.00 Constipation, unspecified; R10.32 Left lower quadrant pain; R50.9 Fever, unspecified; R05 Cough; R11.2 Nausea with vomiting, unspecified; R06.02 Shortness of breath; I10 Essential (primary) hypertension; E03.9 Hypothyroidism, unspecified; F17.210 Nicotine dependence, cigarettes, uncomplicated
CPT/HCPCS: 36415; 71045; 74177; 80053; 83605; 83690; 85025; 86140; 96361; 96374; 96375; 99283; A9270-GY; J1100; J2270; J2405; Q9967

== ENCOUNTER 2019-07-10 11:36 | Emergency (ER) | payer OTHER ==
[2019-07-10] MEDS ORDERED: Albuterol/Ipratropium NEB.SOL* Albuterol 2.5 MG/Ipratropium 0.5 MG 3 ML INH ONE ×2 (12:26→15:24)
--- NOTE | 2019-07-10 12:27 | ED ---
Respiratory - HPI Summary HPI Summary: This pt is a 58 y/o male presenting to [facility] c/o cough since 4 days ago. Pt states he has a productive cough with green sputum. He reports he now has chest pain with coughing. Additionally reports fevers and feeling SOB for the past couple of days. Pt notes he [facility] and was recommended to come to the ED. Patient has never had this bad episode in the past. He does have an inhaler at home. Pt is a current smoker of cigarettes. - History of Current Complaint Chief Complaint: EDShortnessOfBreath Stated Complaint: COUGH, FEVER Time Seen by Provider: 07/10/19 12:19 Hx Obtained From: Patient Onset/Duration: Lasting Days, Still Present Timing: Constant Current Severity: Moderate Pain Intensity: 7 Character: Cough (Productive) Sputum Color: Green Aggravating Factor(s): Nothing Alleviating Factor(s): Nothing Associated Signs and Symptoms: Fever, SOB, Chest Pain, Chest Pain with Cough - Allergy/Home Medications Allergies/Adverse Reactions: Allergies Allergy/AdvReac Type Severity Reaction Status Date / Time No Known Allergies Allergy Verified 07/10/19 13:29 Home Medications: Home Medications Albuterol HFA INHALER* [Ventolin HFA Inhaler*] 2 puff INH Q4H PRN 07/10/19 [ History Confirmed 07/10/19] Buprenorp/Nalox 8-2 MG SL TAB [Suboxone 8-2 mg SL TAB*] 1 tab.sl SL TID [History Confirmed 07/10/19] Cholecalciferol CAP/TAB(NF) [Vitamin D3 CAP/TAB (NF)] 2,000 unit PO DAILY [History Confirmed 07/10/19] Gabapentin CAP(*) [Neurontin 300 CAP(*)] 300 mg PO TID 07/10/19 [History Confirmed 07/10/19] Ibuprofen TAB* [Motrin TAB* 600 MG] 600 mg PO Q6H PRN 07/10/19 [History Confirmed 07/10/19] amLODIPine TAB* [Norvasc 5 mg TAB*] 5 mg PO DAILY 07/10/19 [History Confirmed ] PMH/Surg Hx/FS Hx/Imm Hx Endocrine/Hematology History: Reports: Hx Unexplained Bleeding - rectally Denies: Hx Anticoagulant Therapy, Hx Diabetes, Hx Thyroid Disease Cardiovascular History: Reports: Hx Hypertension - NO MEDS, Other Cardiovascular Problems/Disorders - HYPERTENSION Denies: Hx Congestive Heart Failure, Hx Pacemaker/ICD Respiratory History: Reports: Hx Asthma, Other Respiratory Problems/Disorders - R PNEUMONTHORAX PER PT Comment Only: Hx Chronic Obstructive Pulmonary Disease (COPD) - ? COPD GI History: Reports: Hx Hiatal Hernia - HX OF- HAD SURGERY, Other GI Disorders - right pneumothorax 2011 Denies: Hx Ulcer History: Denies: Hx Dialysis, Hx Renal Disease Musculoskeletal History: Reports: Other Musculoskeletal History - multiple rib fx from tombstone falling on pt Sensory History: Denies: Hx Contacts or Glasses, Hx Hearing Aid Opthamlomology History: Denies: Hx Contacts or Glasses Neurological History: Reports: Other Neuro Impairments/Disorders - depression Denies: Hx Dementia, Hx Seizures Psychiatric History: Reports: Hx Depression Denies: Hx Eating Disorder, Hx Panic Disorder, Hx of Violent Episodes Against Others, Hx Substance Abuse - Surgical History Surgical History: Yes Surgery Procedure, Year, and Place: hiatal hernia repair 2007, [place], Hx Anesthesia Reactions: No - Immunization History Date of Tetanus Vaccine: unknown Date of Influenza Vaccine: unknown Infectious Disease History: No Infectious Disease History: Denies: Hx Hepatitis, Hx Human Immunodeficiency Virus (HIV), 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, Traveled Outside the [place] in Last 30 Days - Family History Known Family History: Negative: Cardiac Disease, Hypertension, Diabetes - Social History Alcohol Use: None Hx Substance Use: Yes Substance Use Type: Reports: Heroin Substance Use Comment - Amount & Last Used: last used 6 month Hx Tobacco Use: Yes Smoking Status (MU): Light Every Day Tobacco Smoker Type: Cigarettes Review of Systems Positive: Fever Positive: Chest Pain Positive: Shortness Of Breath, Cough All Other Systems Reviewed And Are Negative: Yes Physical Exam - Summary Physical Exam Summary: Appearance: The patient is well-nourished in no acute distress and in no acute pain. Skin: The skin is warm and dry and skin color reflects adequate perfusion. HEENT: The head is normocephalic and atraumatic. The pupils are equal and reactive. The conjunctivae are clear and without drainage. Nares are patent and without drainage. Mouth reveals moist mucous membranes and the throat is without erythema and exudate. The external ears are intact. The ear canals are patent and without drainage. The tympanic membranes are intact. Neck: the neck is supple with full range of motion and non-tender. There are no carotid bruits. There is no neck vein distension. Respiratory: Chest is non-tender. Diffuse expiratory wheezes. No accessory muscle use or retractions. Worse on the right side than the left. Cardiovascular: Heart is regular rate and rhythm. There is no murmur or rub auscultated. There is no peripheral edema and pulses are symmetrical and equal. Abdomen: The abdomen is soft and non-tender. There are normal bowel sounds heard in all four quadrants and there is no organomegaly palpated. Musculoskeletal: There is no back tenderness noted. Extremities are non-tender with full range of motion. There is good capillary refill. There is no peripheral edema or calf tenderness elicited. Neurological: Patient is alert and oriented to person, place and time. Psychiatric: The patient has an appropriate affect and does not exhibit any anxiety or depression. Triage Information Reviewed: Yes Vital Signs On Initial Exam: Initial Vitals Temp Pulse Resp BP Pulse Ox 96.0 F 61 18 121/80 93 07/10/19 11:38 07/10/19 11:38 07/10/19 11:38 07/10/19 11:38 07/10/19 11:38 Vital Signs Reviewed: Yes Procedures - Sedation Patient Received Moderate/Deep Sedation with Procedure: No Diagnostics - Vital Signs Vital Signs Temp Pulse Resp BP Pulse Ox 07/10/19 11:38 96.0 F 61 18 121/80 93 - Laboratory Lab Statement: Any lab studies that have been ordered have been reviewed, and results considered in the medical decision making process. - Radiology Chest XR Radiology Interpretation Completed By: Radiologist Summary of Radiographic Findings: IMPRESSION: No active cardiopulmonary disease. Dr. Centeno has reviewed this report. Re-Evaluation - Re-Evaluation First Eval Re-Evaluation Time: 15:23 Change: Unchanged Comment: patient is still wheezing. Will give another duoneb and solu-medrol. Second Eval Re-Evaluation Time: 17:27 Change: Unchanged Comment: Patient is still wheezing. Disposition - Course Course Of Treatment: Mr. Centeno presented with a cough and short course of breath with exertion for couple of weeks. It's been gradually getting worse and he's been using an inhaler given to him by his PCP. He is a smoker. He was nontoxic in appearance with reasonably stable vitals although his pulse ox was staying in the low 90s. He was kept for quite a while and given 3 slow duonebs and some Solu-Medrol. Chest x-ray showed no sign of pneumonia. He didn 't change a whole lot while he was here. Upon ambulation still dropped his pulse ox down to the low 90s. He wanted to go home now and I will treat him with antibiotics and a Solu-Medrol Dosepak. - Diagnoses Provider Diagnoses: COPD exacerbation, Bronchitis Discharge ED - Sign-Out/Discharge Documenting (check all that apply): Patient Departure - Discharge home - Discharge Plan Condition: Stable Disposition: HOME Prescriptions: Azithromycin TAB* [Zithromax TAB (Z-LONNY) 250 mg #6 tabs] 2 tab PO .TODAY, THEN 1 DAILY #1 lonny methylPREDNISolone [Medrol Dosepak 4 MG*] 4 mg PO .SEE LONNY INSTRUCTION #1 tab Patient Education Materials: Acute Bronchitis (ED), COPD (Chronic Obstructive Pulmonary Disease) (ED) Referrals: Demetria Mcdaniel MD [Primary Care Provider] - Additional Instructions: Follow up with your primary care provider in 2-3 days. RETURN TO THE ED FOR ANY WORSENING OR NEW SYMPTOMS. - Billing Disposition and Condition Condition: STABLE Disposition: Home - Attestation Statements Document Initiated by Wei: Yes Documenting Scribe: Toña Vasquez Provider For Whom Wei is Documenting (Include Credential): Eb Centeno MD Scribe Attestation: Toña Lilly, scribed for Eb Centeno MD on 07/10/19 at 2051. Scribe Documentation Reviewed: Yes Provider Attestation: The documentation as recorded by the Toña angelo accurately reflects the service I personally performed and the decisions made by me, Eb Centeno MD Status of Scribtania Document: Viewed
[2019-07-10] MEDS ORDERED: methylPREDNISolone 125 MG* 2 ML VIAL IV ONE (15:24)
[2019-07-10] MEDS ORDERED: Clarithromycin TAB* 500 MG PO ONE (18:13)
[2019-07-10 18:34] VITALS: BP 121/73
== END 2019-07-10 18:33 | disposition home or self-care (01) ==
LOC: ED 11:36
DX: J44.1 Chronic obstructive pulmonary disease with (acute) exacerbation (principal); J40 Bronchitis, not specified as acute or chronic; I10 Essential (primary) hypertension; F17.210 Nicotine dependence, cigarettes, uncomplicated; Z79.899 Other long term (current) drug therapy
CPT/HCPCS: 71046; 96374; 99283; A9270-GY; J2930